=== PATIENT | female | born 1975 | race Caucasian/White ===

== ENCOUNTER 2020-06-12 10:27 | Emergency (ER) | payer SELFPAY ==
[2020-06-12] MEDS ORDERED: PANTOPRAZOLE SODIUM 40 MG VIAL IV ONE (11:49)
[2020-06-12] MEDS ORDERED: NORMAL SALINE 1000 ML 1,000 ML IV ONE (11:51)
[2020-06-12 12:00] LABS: ABSOLUTE LYMPHOCYTES (AUTO) 1.3 10^3/uL (0.5-4.7); ABSOLUTE MONOCYTES (AUTO) 0.6 10^3/uL (0.1-1.4); ABSOLUTE NEUT (AUTO) 4.1 10^3/uL (1.7-8.2); BASOPHILS % (AUTO) 0.7 % (0-2); EOSINOPHILS % (AUTO) 0.5 % (0-6); HEMATOCRIT 38.5 % (36.0-47.0); HEMOGLOBIN 13.1 g/dL (12.0-15.5); LYMPHOCYTES % (AUTO) 21.4 % (13-45); MEAN CORPUSCULAR HEMOGLOBIN 34.2 pg (27.0-33.4); MEAN CORPUSCULAR HGB CONC 34.1 g/dL (32.0-36.0); MEAN CORPUSCULAR VOLUME 101 fl (80-97); MONOCYTES % (AUTO) 9.4 % (3-13); PLATELET COUNT 238 10^3/uL (150-450); RED BLOOD COUNT 3.84 10^6/uL (3.72-5.28); RED CELL DISTRIBUTION WIDTH 13.6 % (11.5-14.0); TOTAL CELLS COUNTED % (AUTO) 100 %
[2020-06-12 12:03] LABS: ALBUMIN 3.1 g/dL (3.5-5.0); ALKALINE PHOSPHATASE 66 U/L (38-126); ASPARTATE AMINO TRANSFERASE 44 U/L (14-36); BILIRUBIN,DIRECT 0.4 mg/dL (0.0-0.4); BILIRUBIN,TOTAL 0.6 mg/dL (0.2-1.3); BLOOD UREA NITROGEN 17 mg/dL (7-20); CALCIUM 8.7 mg/dL (8.4-10.2); CARBON DIOXIDE 25 mmol/L (22-30); CHLORIDE 108 mmol/L (98-107); GLUCOSE 77 mg/dL (75-110); POTASSIUM 4.4 mmol/L (3.6-5.0); TOTAL PROTEIN 5.8 g/dL (6.3-8.2)
[2020-06-12 12:04] LABS: ANION GAP 3 (5-19)
[2020-06-12 12:19] LABS: ACETAMINOPHEN < 10 ug/mL (10-30); ALCOHOL < 10 mg/dL (NONE DETECTED)
--- NOTE | 2020-06-12 12:22 | RADIOLOGY REPORT (SQ) ---
EXAM DESCRIPTION: CHEST SINGLE VIEW IMAGES COMPLETED DATE/TIME: 06/12/2020 12:05 pm REASON FOR STUDY: abd pain/history of gastric ulcer COMPARISON: None. EXAM PARAMETERS: NUMBER OF VIEWS: One view. TECHNIQUE: Single frontal radiographic view of the chest acquired. RADIATION DOSE: NA LIMITATIONS: None. FINDINGS: LUNGS AND PLEURA: No opacities, masses or pneumothorax. No pleural effusion. MEDIASTINUM AND HILAR STRUCTURES: No masses. Contour normal. HEART AND VASCULAR STRUCTURES: Heart normal in size. Normal vasculature. BONES: No acute findings. HARDWARE: None in the chest. OTHER: No other significant finding. IMPRESSION: NO ACUTE RADIOGRAPHIC FINDING IN THE CHEST. TECHNICAL DOCUMENTATION: JOB ID: [id number] 2010 [employer]- All Rights Reserved Reading location - IP/workstation name: [email or web address]
[2020-06-12] MEDS ORDERED: MORPHINE SULFATE 10 MG/ML INJ IV ONE (13:41)
[2020-06-12] MEDS ORDERED: ONDANSETRON HCL INJ/PF 4 MG/2 ML SDV IV ONE (13:42)
--- NOTE | 2020-06-12 14:03 | ER Document Report ---
Entered by MIHIR MARROQUIN SCRIBE 06/12/20 1142 Acting as scribe for:GIRMA BHANDARI MD ED GI/ - General Chief Complaint: Abdominal Pain Stated Complaint: ABDOMINAL PAIN Time Seen by Provider: 06/12/20 10:39 Mode of Arrival: Medic Information source: Patient, Parent Notes: This 45 year old female patient brought in by EMS from her mother's house presents to the ED for evaluation stating "I feel like I'm suffocating when I eat again." Patient states that this happens when she is "obstructed." She states that she noticed dark and bright red blood in her stool yesterday and this morning. She reports a complicated history of x5 perforated ulcers with x4 revisions and that she has "less than 10% of my stomach left." She mentions that she is visiting from [place] and that the last time she was in the hospital there in 12/2019, she was told she had another ulcer "the size of my stomach." Denies any nausea or vomiting. No blood thinners. Patient received 20 mg Pepcid and 4 mg Zofran via EMS. After leaving the room, the patient's mother who was at bedside pulled me aside and disclosed that the patient has a history of drug and ETOH abuse and that she believes she is drinking again and may be in withdrawal. Mother reports that she spoke with the patient's roommate back in [place] and was told that the patient has been taking x20-50 Tylenol PM tablets every day. She further reports that the patient arrived in [place] on 06/07 as a "surprise" and told her that she only had a year left due to her complicated GI history. Mother expresses concerns about the patient possibly withholding information regarding her health. - Related Data Allergies/Adverse Reactions: No Known Allergies Allergy (Verified 06/12/20 10:31) Past Medical History - General Information source: Patient, [facility] Records - Social History Smoking Status: Unknown if Ever Smoked Smoking Education Provided: No Family History: Reviewed & Not Pertinent Patient has homicidal ideation: No GI Medical History: Reports: Hx Ulcer Past Surgical History: Reports: Hx Abdominal Surgery - x4 revision, Hx Gastric Bypass Surgery - Immunizations Hx Diphtheria, Pertussis, Tetanus Vaccination: No Review of Systems - Review of Systems Constitutional: No symptoms reported EENT: See HPI Cardiovascular: No symptoms reported Respiratory: No symptoms reported Gastrointestinal: See HPI Genitourinary: No symptoms reported Female Genitourinary: No symptoms reported Musculoskeletal: No symptoms reported Skin: No symptoms reported Hematologic/Lymphatic: No symptoms reported Neurological/Psychological: No symptoms reported -: Yes All other systems reviewed and negative Physical Exam - Vital signs Vitals: Pulse Ox 99 06/12/20 10:51 - General General appearance: Alert, Anxious In distress: None - HEENT Head: Normocephalic, Atraumatic Eyes: Normal Pupils: PERRL - Respiratory Respiratory status: No respiratory distress Chest status: Nontender Breath sounds: Normal Chest palpation: Normal - Cardiovascular Rhythm: Regular Heart sounds: Normal auscultation, S1 appreciated, S2 appreciated Murmur: No Friction rub: No Gallop: None auscultated - Abdominal Inspection: Normal Distension: No distension Bowel sounds: Normal - Active bowel sounds Tenderness: Nontender - Abdomen soft Organomegaly: No organomegaly - Back Back: Normal, Nontender - Extremities General upper extremity: Normal inspection General lower extremity: Normal inspection. No: Edema - Neurological Neuro grossly intact: Yes Orientation: AAOx4 [place] Coma Scale Eye Opening: Spontaneous [place] Coma Scale Verbal: Oriented [place] Coma Scale Motor: Obeys Commands [place] Coma Scale Total: 15 - Psychological Associated symptoms: Anxious, Other - Rapid speech - Skin Skin Temperature: Warm Skin Moisture: Dry Skin Color: Normal Course - Re-evaluation Re-evalutation: 06/12/20 17:04 Patient resting comfortably at this time. 06/12/20 17:06 Bedside [id number] Hemoccult of stool shows a brown-colored stool that is guaiac positive on Hemoccult. 06/12/20 17:06 Patient is not showing any signs of any active GI upper or lower GI bleed. Patient may have hemorrhoids therefore will start patient on Anusol AC. - Vital Signs Vital signs: Temp Pulse Resp BP Pulse Ox 98 F 19 144/94 H 98 06/12/20 10:53 06/12/20 14:46 06/12/20 14:46 06/12/20 14:46 06/12/20 17:05 Vital signs are stable. Patient's blood pressure systolic 144/94. - Laboratory Result Diagrams: 06/12/20 11:47 06/12/20 11:15 Laboratory results interpreted by me: 06/12/20 06/12/20 06/12/20 11:15 11:47 11:47 MCV 101 H MCH 34.2 H Sodium 135.7 L Chloride 108 H Anion Gap 3 L Creatinine 0.39 L Lactic Acid 0.6 L AST 44 H Total Protein 5.8 L Albumin 3.1 L Acetaminophen 06/12/20 11:47 MCV MCH Sodium Chloride Anion Gap Creatinine Lactic Acid AST Total Protein Albumin Acetaminophen < 10 L 06/12/20 11:47 06/12/20 11:15 MCV 101 fl (80-97) H 06/12/20 11:47 MCH 34.2 pg (27.0-33.4) H 06/12/20 11:47 MCHC 34.1 g/dL (32.0-36.0) 06/12/20 11:47 RDW 13.6 % (11.5-14.0) 06/12/20 11:47 Seg Neutrophils % 68.0 % (42-78) 06/12/20 11:47 Chloride 108 mmol/L (98-107) H 06/12/20 11:15 Carbon Dioxide 25 mmol/L (22-30) 06/12/20 11:15 Anion Gap 3 (5-19) L 06/12/20 11:15 Est GFR ( Amer) > 60 (>60) 06/12/20 11:15 Glucose 77 mg/dL (75-110) 06/12/20 11:15 Lactic Acid 0.6 mmol/L (0.7-2.1) L 06/12/20 11:47 Calcium 8.7 mg/dL (8.4-10.2) 06/12/20 11:15 Total Bilirubin 0.6 mg/dL (0.2-1.3) 06/12/20 11:15 AST 44 U/L (14-36) H 06/12/20 11:15 Alkaline Phosphatase 66 U/L (38-126) 06/12/20 11:15 Total Protein 5.8 g/dL (6.3-8.2) L 06/12/20 11:15 Albumin 3.1 g/dL (3.5-5.0) L 06/12/20 11:15 Lipase 289.9 U/L (23-300) 06/12/20 11:15 Urine Color YELLOW 06/12/20 14:03 Urine Appearance CLEAR 06/12/20 14:03 Urine pH 6.0 (5.0-9.0) 06/12/20 14:03 Ur Specific [place] 1.013 06/12/20 14:03 Urine Protein NEGATIVE mg/dL (NEGATIVE) 06/12/20 14:03 Urine Glucose (UA) NEGATIVE mg/dL (NEGATIVE) 06/12/20 14:03 Urine Ketones NEGATIVE mg/dL (NEGATIVE) 06/12/20 14:03 Urine Blood NEGATIVE (NEGATIVE) 06/12/20 14:03 Urine Nitrite NEGATIVE (NEGATIVE) 06/12/20 14:03 Ur Leukocyte Esterase NEGATIVE (NEGATIVE) 06/12/20 14:03 Urine WBC (Auto) 1 /HPF 06/12/20 14:03 Urine RBC (Auto) 0 /HPF 06/12/20 14:03 Blood Type O POSITIVE 06/12/20 11:47 Antibody Screen NEGATIVE 06/12/20 11:47 06/12/20 12:32 Troponin I < 0.012 Laboratory exam does not disclose any acute process. - Diagnostic Test Radiology reviewed: Image reviewed, Reports reviewed Radiology results interpreted by me: 06/12/20 16:19 Abdomen/Pelvis CT 06/12/20 00:00 IMPRESSION: Extensive postsurgical changes of the bowel with few mildly prominent loops of small bowel without evidence of high-grade obstruction. No evidence of acute intra-abdominal infectious/inflammatory process. Chest X-Ray 06/12/20 11:52 IMPRESSION: NO ACUTE RADIOGRAPHIC FINDING IN THE CHEST. Chest x-ray shows no acute process no free air underneath the diaphragm to suggest any abdominal viscus perforation. Abdominal pelvis CT with oral contrast only shows extensive postsurgical changes no evidence of any obstruction no evidence of any acute intra-abdominal infectious or inflammatory process. - EKG Interpretation by Me Additional EKG results interpreted by me: 06/12/20 16:18 12-lead EKG shows normal sinus rhythm rate of [address]-T wave changes to suggest a STEMI LA interval QRS interval and QT interval within normal interval ranges. Normal axis normal EKG. Discharge - Discharge Clinical Impression: Abdominal pain, Encounter for Hemoccult screening Condition: Stable Disposition: HOME, SELF-CARE Instructions: Abdominal Pain ([facility]) Additional Instructions: Rectal Bleeding, Unclear Cause No definite cause has been found for the rectal bleeding you have experienced. Among the possible causes are internal or external hemorrhoids (internal hemorrhoids can't be felt on the outside), an anal fissure (a crack at the anal ring), infections or inflammatory diseases of the colon, tumors or sarmad yps, or diverticula (diverticula are outpouchings from the colon wall). To establish a cause for your bleeding (or at least make certain there is no serious problem such as a tumor), further evaluation will be necessary. This may include special X-rays, or passage of a scope up into the colon. Be sure to keep your follow-up appointment. Should you develop brisk bleeding, abdominal pain, fever, lightheadedness, or fever, call the doctor or return at once. Prescriptions: Hydrocortisone Acetate [Anusol Hc 25 mg Supp.rect] 1 supp.rect LA BID #14 supp.rect Referrals: LEVI VALERIO MD [ACTIVE STAFF] - Follow up as needed I personally performed the services described in the documentation, reviewed and edited the documentation which was dictated to the scribe in my presence, and it accurately records my words and actions.
[2020-06-12 14:25] LABS: APPEARANCE,URINE CLEAR; BILIRUBIN,URINE NEGATIVE (NEGATIVE); COLOR,URINE YELLOW; GLUCOSE, URINE NEGATIVE (NEGATIVE); KETONES,URINE NEGATIVE (NEGATIVE); LEUKOCYTE ESTERASE,URINE NEGATIVE (NEGATIVE); NITRITE,URINE NEGATIVE (NEGATIVE); PROTEIN,URINE NEGATIVE (NEGATIVE); URINE SPECIFIC GRAVITY 1.013; UROBILINOGEN,URINE NEGATIVE mg/dL (<2.0)
--- NOTE | 2020-06-12 15:17 | RADIOLOGY REPORT (SQ) ---
EXAM DESCRIPTION: CT ABD/PELVIS ORAL ONLY IMAGES COMPLETED DATE/TIME: 06/12/2020 2:58 pm REASON FOR STUDY: abd pain/rectal bleed/ Gastric Bypass/ revisions COMPARISON: 04/18/2014 TECHNIQUE: CT scan of the abdomen and pelvis performed with oral contrast and no intravenous contras t. Images reviewed with lung, soft tissue, and bone windows. Reconstructed coronal and sagittal MPR i mages reviewed. All images stored on PACS. All CT scanners at this facility use dose modulation, iterative reconstruction, and/or weight based d osing when appropriate to reduce radiation dose to as low as reasonably achievable (ALARA). [facility]: Dose Right [facility]: CareDose [facility]: Dose Right [facility]: Teradose 4D [facility]: [employer] RADIATION DOSE: CT Rad equipment meets quality standard of care and radiation dose reduction techniq ues were employed. CTDIvol: 5.9 mGy. DLP: 330 mGy-cm.mGy. LIMITATIONS: None. FINDINGS: LOWER CHEST: No significant findings. No nodules or infiltrates. NON-CONTRASTED LIVER, SPLEEN, ADRENALS: Evaluation limited by lack of IV contrast. No identified sign ificant masses. PANCREAS: No masses. No peripancreatic inflammatory changes. GALLBLADDER: Surgically absent. RIGHT KIDNEY AND URETER: No solid masses. No significant calcification. No hydronephrosis or hydroure ter. LEFT KIDNEY AND URETER: No solid masses. No significant calcification. No hydronephrosis or hydrouret er. AORTA AND RETROPERITONEUM: No aneurysm. No retroperitoneal masses or adenopathy. BOWEL AND PERITONEAL CAVITY: Status post bariatric surgery with multiple anastomoses seen throughout the abdomen. No enteric contrast extravasation. Few mildly prominent loops of small bowel without e vidence of mechanical obstruction. . APPENDIX: Not visualized. PELVIS, BLADDER, AND ABDOMINAL WALL: No abnormal pelvic masses. Postsurgical changes without abdomin al wall hernias. Bladder unremarkable. BONES: No significant findings. OTHER: No other significant finding. IMPRESSION: Extensive postsurgical changes of the bowel with few mildly prominent loops of small bow el without evidence of high-grade obstruction. No evidence of acute intra-abdominal infectious/infla mmatory process. TECHNICAL DOCUMENTATION: JOB ID: [id number] Quality ID # [id number]: Final reports with documentation of one or more dose reduction techniques (e.g., Au tomated exposure control, adjustment of the mA and/or kV according to patient size, use of iterative reconstruction technique) 2010 [employer]- All Rights Reserved Reading location - IP/workstation name: [email or web address]
[2020-06-12] MEDS ORDERED: LIDOCAINE 2% VISCOUS SOLN 15 ML UDCUP PO ONE (16:25)
[2020-06-12] MEDS ORDERED: MAG HYDROX/AL HYDROX/SIMETH SUSP 30 ML UDCUP PO ONE (16:25)
[2020-06-12] MEDS ORDERED: METOCLOPRAMIDE HCL ORAL SOLN 10 MG/10 ML UDCUP PO ONE (16:25)
--- NOTE | 2020-06-12 16:30 | EKG REPORT ---
SEVERITY:- NORMAL ECG - SINUS RHYTHM : Confirmed by: Gabo Cam 12-Jun-2020 16:29:43
[2020-06-12 17:11] VITALS: BP 136/84
[2020-06-12 17:15] LABS: URINE AMPHETAMINES SCREEN NEGATIVE; URINE BARBITURATES SCREEN NEGATIVE; URINE BENZODIAZEPINES SCREEN NEGATIVE; URINE COCAINE SCREEN NEGATIVE; URINE MARIJUANA (THC) SCREEN NEGATIVE; URINE METHADONE SCREEN NEGATIVE; URINE PHENCYCLIDINE SCREEN NEGATIVE
== END 2020-06-12 17:33 | disposition home or self-care (01) ==
LOC: ER 10:27
DX: R10.9 Unspecified abdominal pain (principal); K92.1 Melena; Z98.84 Bariatric surgery status
CPT/HCPCS: 93005; 99285; 96361; 96374; 96375; 86900; 86901; 36415; 86850; 80307 ×3; 83605; 83690; 85025; 85730; 82270; 80053; 81001; 84484; 71045; 74176; 93010; J3490; J2270; C9113; J2405; J7030

== ENCOUNTER 2020-06-25 18:19 | Emergency (ER) | payer SELFPAY ==
[2020-06-25 20:25] LABS: ABSOLUTE EOSINOPHILS # (AUTO) 0.1 10^3/uL (0.0-0.6); ABSOLUTE LYMPHOCYTES (AUTO) 1.2 10^3/uL (0.5-4.7); ABSOLUTE MONOCYTES (AUTO) 0.4 10^3/uL (0.1-1.4); ABSOLUTE NEUT (AUTO) 3.2 10^3/uL (1.7-8.2); BASOPHILS % (AUTO) 0.6 % (0-2); EOSINOPHILS % (AUTO) 1.6 % (0-6); HEMATOCRIT 34.6 % (36.0-47.0); HEMOGLOBIN 12.2 g/dL (12.0-15.5); LYMPHOCYTES % (AUTO) 24.7 % (13-45); MEAN CORPUSCULAR HEMOGLOBIN 34.7 pg (27.0-33.4); MEAN CORPUSCULAR HGB CONC 35.3 g/dL (32.0-36.0); MEAN CORPUSCULAR VOLUME 98 fl (80-97); MONOCYTES % (AUTO) 8.7 % (3-13); PLATELET COUNT 202 10^3/uL (150-450); RED BLOOD COUNT 3.53 10^6/uL (3.72-5.28); SEGMENTED NEUTROPHILS % (AUTO) 64.4 % (42-78); TOTAL CELLS COUNTED % (AUTO) 100 %
[2020-06-25] MEDS ORDERED: ONDANSETRON HCL INJ/PF 4 MG/2 ML SDV IV ONE (20:31)
[2020-06-25] MEDS ORDERED: NORMAL SALINE 1000 ML 1,000 ML IV ONE (20:31)
[2020-06-25] MEDS ORDERED: FENTANYL CITRATE INJ/PF 100 MCG/2 ML AMPUL IV ONE (20:31)
--- NOTE | 2020-06-25 20:37 | ER Document Report ---
ED GI/ - General Chief Complaint: Bloody Stools Stated Complaint: ABDOMINAL PAIN Time Seen by Provider: 06/25/20 20:13 Notes: Patient is a 45-year-old female who comes emergency department for chief complaint of 4 days of abdominal pain, pain is worse in the mid to upper abdomen. She comes by EMS from home. EMS states concerns from family that patient she states she is also having frequent stools, intermittently she states these have appeared darker or bloody her but she denies black stools and she just had a bowel movement that was nonbloody. She denies vomiting but she states she is not able to vomit, she reports nausea. She denies fever/chills. Patient has an extensive abdominal history including gastric bypass with revision, reported bowel obstruction, hysterectomy, cholecystectomy. She also reports history of perforated peptic ulcers and GI bleeds. She states she is trying to fix her insurance to follow-up with gastroenterology in [place] but is not currently. Drinks frequent alcohol and also has recently abused methamphetamine, patient denies any other or recent recreational drugs, limited asked about alcohol she states she has not "had any for a while", however she does clarify that she most recently drank yesterday. She denies any daily medications. She denies alcohol dependence or withdrawals. - Related Data Allergies/Adverse Reactions: No Known Allergies Allergy (Verified 06/12/20 10:31) Past Medical History - General Information source: Patient - Social History Smoking Status: Never Smoker Chew tobacco use (# tins/day): No Frequency of alcohol use: Heavy Drug Abuse: Methamphetamine Lives with: Family Family History: Reviewed & Not Pertinent Neurological Medical History: Reports: Hx Migraine GI Medical History: Reports: Hx Gastritis, Hx Ulcer Past Surgical History: Reports: Hx Section, Hx Cholecystectomy, Hx Gastric Bypass Surgery - With revision, Hx Hysterectomy - Immunizations Hx Diphtheria, Pertussis, Tetanus Vaccination: No Review of Systems - Review of Systems Constitutional: No symptoms reported EENT: No symptoms reported Cardiovascular: No symptoms reported Respiratory: No symptoms reported Gastrointestinal: See HPI Genitourinary: No symptoms reported Female Genitourinary: No symptoms reported Musculoskeletal: No symptoms reported Skin: No symptoms reported Hematologic/Lymphatic: No symptoms reported Neurological/Psychological: No symptoms reported Physical Exam - Vital signs Vitals: Resp Pulse Ox 25 H 95 06/25/20 18:28 06/25/20 18:28 - Notes Notes: GENERAL: Patient shifting around as if somewhat uncomfortable but she does not appear to be in severe distress, she is alert and cooperative HEAD: Normocephalic, atraumatic. EYES: Pupils equal, round, and reactive to light. Extraocular movements intact. ENT: Oral mucosa moist, tongue midline. Oropharynx unremarkable. Airway patent. NECK: Full range of motion. Supple. Trachea midline. No lymphadenopathy. LUNGS: Clear to auscultation bilaterally, no wheezes, rales, or rhonchi. No respiratory distress. Non-tender chest wall. HEART: Regular rate and rhythm. No murmur ABDOMEN: Generalized tenderness of the abdomen, no overt distention or rigidity, no guarding. Nonspecific exam. Deep scars vertically in the mid upper abdomen EXTREMITIES: Moves all 4 extremities spontaneously. No edema, normal radial and dorsalis pedis pulses bilaterally. No cyanosis. BACK: no cervical, thoracic, lumbar midline tenderness. No saddle anesthesia, normal distal neurovascular exam. Moves all extremities in full range of motion. NEUROLOGICAL: Alert and oriented x3. Normal speech. Cranial nerves II through XII grossly intact. Strength 5/5 in all extremities. PSYCH: Normal affect, normal mood. SKIN: Warm, dry, normal turgor. No rashes or lesions noted. Course - Re-evaluation Re-evalutation: Patient complains of abdominal pain and was shifting around initially as if she was uncomfortable. However when I left the room and suddenly came back she had no signs of distress. She has no overt distention of the abdomen and she has generalized tenderness. She does have significant surgical history and significant surgical scars. Acute abdominal series questionable and there is not an overt obstruction but it also cannot rule this out. CBC unremarkable, chemistry shows elevated LFTs, there is alcohol present in patient's blood but this is low, alcohol lipase unremarkable, bilirubin unremarkable, I suspect this is secondary to alcohol abuse. AST greater than ALT. Urinalysis unremarkable. CAT scan will be performed to rule out acute etiology based on patient's uncertain exam and concerning past along with her current reported symptoms. CT of the abdomen and pelvis with oral and IV contrast does not show any overt or significant change from prior, probable ileus. Patient actually tolerated the contrast quite well and on reevaluation she continues to be well-appearing. I discussed results with patient at length. She had a bowel movement while she was here. She is sitting up in bed. She tolerated p.o. without difficulty. Initially we discussed the ileus, patient will be provided with MiraLAX, discussed alcohol abuse, she will be provided with Carafate and famotidine, I have offered detox placement but patient declined. She denies SI or HI as well. She states that she actually drinks when she wants to and not because she has to, she denies addiction. Patient already is scheduled to follow-up with a billing clinician she reports, she states she does not need referral. I discussed return precautions at length, patient states she is ready to go home, patient states appreciation and agreement. Stable, smiling, well-appearing at time of discharge. - Vital Signs Vital signs: Temp Pulse Resp BP Pulse Ox 98.0 F 14 102/61 94 06/26/20 00:02 06/26/20 01:00 EST 06/26/20 01:01 EST 06/26/20 01:01 EST - Laboratory Result Diagrams: 06/25/20 20:15 06/25/20 20:15 Laboratory results interpreted by me: 06/25/20 06/25/20 20:15 20:15 RBC 3.53 L Hct 34.6 L MCV 98 H MCH 34.7 H Carbon Dioxide 20 L Creatinine 0.47 L AST 249 H ALT 230 H Alkaline Phosphatase 192 H Total Protein 6.2 L Albumin 3.4 L Discharge - Discharge Clinical Impression: Nausea Abdominal pain Qualifiers: Abdominal location: generalized Qualified Code(s): R10.84 - Generalized abdomi nal pain Condition: Stable Disposition: HOME, SELF-CARE Additional Instructions: Your imaging shows a likely ileus as we discussed, I do recommend the stool softener as prescribed, drink plenty of fluids, start with bland diet, avoid alcohol. Take the Carafate and Pepcid as prescribed. Take Phenergan if needed for nausea. Please call and follow-up with your planned billing clinician within the next several days. Return if you worsen including severe worsening pain, fever, swelling of the abdomen, black/bloody stools, or any other concerning or worsening symptoms. Prescriptions: Sucralfate [Carafate 1 gm Tablet] 1 gm PO QID #20 tablet Polyethylene Glycol 3350 [Miralax Powder 17 gm/Packet] 1 packet PO DAILY PRN #1 pkg PRN Reason: Famotidine [Pepcid 20 mg Tablet] 20 mg PO BID #20 tablet Promethazine HCl [Phenergan 25 mg Tablet] 25 mg PO Q6H PRN #20 tablet PRN Reason:
[2020-06-25 20:42] LABS: ALBUMIN 3.4 g/dL (3.5-5.0); ALKALINE PHOSPHATASE 192 U/L (38-126); ANION GAP 10 (5-19); ASPARTATE AMINO TRANSFERASE 249 U/L (14-36); BILIRUBIN,TOTAL 0.4 mg/dL (0.2-1.3); BLOOD UREA NITROGEN 14 mg/dL (7-20); CALCIUM 8.6 mg/dL (8.4-10.2); CARBON DIOXIDE 20 mmol/L (22-30); CHLORIDE 107 mmol/L (98-107); GLUCOSE 85 mg/dL (75-110); POTASSIUM 3.6 mmol/L (3.6-5.0); TOTAL PROTEIN 6.2 g/dL (6.3-8.2)
[2020-06-25 21:35] LABS: APPEARANCE,URINE CLEAR; BILIRUBIN,URINE NEGATIVE (NEGATIVE); COLOR,URINE YELLOW; GLUCOSE, URINE NEGATIVE (NEGATIVE); KETONES,URINE NEGATIVE (NEGATIVE); LEUKOCYTE ESTERASE,URINE NEGATIVE (NEGATIVE); NITRITE,URINE NEGATIVE (NEGATIVE); PROTEIN,URINE NEGATIVE (NEGATIVE); URINE SPECIFIC GRAVITY 1.018; UROBILINOGEN,URINE NEGATIVE mg/dL (<2.0)
[2020-06-25 21:50] LABS: URINE AMPHETAMINES SCREEN NEGATIVE; URINE BARBITURATES SCREEN NEGATIVE; URINE BENZODIAZEPINES SCREEN NEGATIVE; URINE COCAINE SCREEN NEGATIVE; URINE MARIJUANA (THC) SCREEN NEGATIVE; URINE METHADONE SCREEN NEGATIVE; URINE PHENCYCLIDINE SCREEN NEGATIVE
--- NOTE | 2020-06-25 21:55 | RADIOLOGY REPORT (SQ) ---
EXAM DESCRIPTION: XR ABDOMEN SUPINE AND ERECT WITH CHEST (ABD ACUTE SERIES) COMPLETED DATE/TME: 06/25/2020 20:30 CLINICAL HISTORY: 45 years, Female, abd pain/swelling, hx obs and perforation COMPARISON: 22,020 CT abdomen and pelvis NUMBER OF VIEWS: 3 TECHNIQUE: Flat and upright views of the abdomen and single frontal view of the chest were obtained LIMITATIONS: None. FINDINGS: Distended and mildly dilated loops of small and large bowel are identified, small bowel measuring up to 4 cm and large bowel 6.5 cm. This is likely without significant interval change from the prior CT. There is no evidence of pneumoperitoneum. There is no definite abnormal mass effect. No definite opaque urinary tract calculus is seen. The heart size is normal. Lungs are clear. There is no definite acute or suspicious bony abnormality. IMPRESSION: Persistent distended mildly dilated small and large bowel, likely without significant change from the June 12, 2020 CT allowing for differences in imaging modalities. This could be on the basis of an ileus or partial distal bowel obstruction. copyright 2010 [employer]- All Rights Reserved
[2020-06-25] MEDS ORDERED: LORAZEPAM INJ 2 MG/1 ML VIAL IV ONE (22:47)
[2020-06-26] MEDS ORDERED: ONDANSETRON ODT 4 MG TAB (6 TAB/ER DISP) PO PRN (01:05)
[2020-06-26] MEDS ORDERED: LORAZEPAM 1 MG TABLET PO ONE (01:10)
--- NOTE | 2020-06-26 01:46 | RADIOLOGY REPORT (SQ) ---
CT ABDOMEN AND PELVIS WITH INTRAVENOUS CONTRAST: 06/26/2020 12:38 AM CDT HISTORY: 45-year old with abdominal pain. COMPARISON: CT of abdomen and pelvis from 04/18/2014, CT of abdomen and pelvis from 06/12/2020 TECHNIQUE: Axial contiguous images were obtained from the lung bases to the proximal femurs with intravenous intravenous contrast administered. Oral contrast was also given to the patient. Sagittal and coronal reconstructions were also obtained and reviewed. This exam was performed according to our departmental dose-optimization program, which includes automated exposure control, adjustment of the mA and/or KV according to the patient's size and/or use of iterative reconstruction technique. FINDINGS: No focal consolidative airspace opacities are seen. No discrete pleural effusions are seen. The visualized hepatic parenchyma is unremarkable. No focal enhancing lesion is seen. The gallbladder is surgically absent. There is mild prominence of the intra and extrahepatic ducts, likely due to postcholecystectomy changes. The spleen is normal in size. The pancreas is unremarkable. The bilateral adrenal glands appear unremarkable. Both kidneys demonstrate no evidence of hydronephrosis. The urinary bladder is mildly distended, and appears grossly unremarkable. The stomach is not well distended. There are post surgical changes noted at the stomach. There is similar mild prominence of the small bowel and colon without evidence for gross transition point. This likely reflects evidence of an ileus, less likely an obstructive process. No pericolonic inflammatory stranding is seen. There is evidence of prior small bowel anastomoses and postsurgical change There is no evidence of pneumoperitoneum or free fluid. The aorta and IVC appear normal in size. No significantly enlarged lymph nodes are seen in the abdomen or pelvis. Review of the bone show no evidence of any suspicious lytic or blastic lesions. IMPRESSION: There is similar mild prominence of the small bowel and colon without evidence for gross transition point. This likely reflects evidence of an ileus, less likely an obstructive process.
[2020-06-26 01:52] VITALS: BP 114/81
== END 2020-06-26 01:54 | disposition home or self-care (01) ==
LOC: ER 18:19
DX: R10.84 Generalized abdominal pain (principal); R10.817 Generalized abdominal tenderness; R11.0 Nausea; F15.10 Other stimulant abuse, uncomplicated; R79.89 Other specified abnormal findings of blood chemistry; Z87.11 Personal history of peptic ulcer disease; Z98.84 Bariatric surgery status; Z87.19 Personal history of other diseases of the digestive system; Z90.49 Acquired absence of other specified parts of digestive tract; Z90.710 Acquired absence of both cervix and uterus
CPT/HCPCS: 99285; 96361; 96374; 96375; 36415; 80307 ×2; 83690; 85025; 80053; 81001; 74022; 74177; J3010; J2060; J2405; J7030

== ENCOUNTER 2020-06-30 12:07 | Observation (INO) | payer SELFPAY ==
--- NOTE | 2020-06-30 12:49 | ER Document Report ---
ED Medical Screen (RME) - General Chief Complaint: Nausea/Vomiting/Diarrhea Stated Complaint: NAUSEA/VOMITING/DIARRHEA/HEADACHE Time Seen by Provider: 06/30/20 12:43 Mode of Arrival: Wheelchair Information source: Patient Notes: 45-year-old female presents to ED for complaint of nausea vomiting or diarrhea for the last 11 days. She states she has been here multiple times and they sent her home with medicine they have done CAT scans blood work urine and discharge her home with medicines. She states she cannot get into GI and she is going to the bathroom about 20 times a day. She states she is very weak from going to the bathroom so many times. She states the stools are green runny and some of them have blood in them. She had a gastric bypass when she was 28 she is also had a history of bleeding ulcers in the past for revisions of her bypass. She states she has a stomach ulcer now also. She states she has had numerous blood transfusions in the past has had a pulmonary emboli in the past. We will order blood urine and stool and IV fluids and Zofran. I have greeted and performed a rapid initial assessment of this patient. A comprehensive ED assessment and evaluation of the patient, analysis of test results and completion of medical decision making process will be conducted by an additional ED providers. - Related Data Allergies/Adverse Reactions: No Known Allergies Allergy (Verified 06/12/20 10:31) Past Medical History Neurological Medical History: Reports: Hx Migraine GI Medical History: Reports: Hx Gastritis, Hx Ulcer Past Surgical History: Reports: Hx Abdominal Surgery - x4 revision, Hx Section, Hx Cholecystectomy, Hx Gastric Bypass Surgery - With revision, Hx Hysterectomy - Immunizations Hx Diphtheria, Pertussis, Tetanus Vaccination: No Physical Exam - Vital signs Vitals: Temp Pulse Resp BP Pulse Ox 98.8 F 110 H 20 110/84 97 06/30/20 12:38 06/30/20 12:38 06/30/20 12:38 06/30/20 12:38 06/30/20 12:38 Course - Vital Signs Vital signs: Temp Pulse Resp BP Pulse Ox 98.8 F 110 H 20 110/84 97 06/30/20 12:38 06/30/20 12:38 06/30/20 12:38 06/30/20 12:38 06/30/20 12:38
[2020-06-30] MEDS ORDERED: NORMAL SALINE 1000 ML 1,000 ML IV ONE (13:56)
--- NOTE | 2020-06-30 14:00 | ER Document Report ---
ED General - General Mode of Arrival: Wheelchair <JAMAL TOMAS - Last Filed: 06/30/20 20:02> <PÉREZ RIVERA - Last Filed: 07/01/20 11:09> - General Chief Complaint: Diarrhea Stated Complaint: NAUSEA/VOMITING/DIARRHEA/HEADACHE Time Seen by Provider: 06/30/20 12:43 - HPI Notes: 45-year-old female presents to the emergency room today with complaints of having 12 days of having diarrhea, stooling several times a day. Patient states she has been taking Pepcid, Carafate, Phenergan as directed from when she was seen in the emergency room on June 26. Denies any melena. pt was given miralax, she states she only took 3 doses of the MiraLAX. Patient states that she has had 12 straight days of stooling at least 20 times a day. Denies any antibiotics, travel outside of the country. CT abdomen pelvis with IV and oral contrast showed that she was likely developing an ileus, this is why she was prescribed stool softeners advised to drink plenty fluids, follow bland diet, avoid any alcohol. Patient states she has been following this. Patient denies any black tarry stool. Patient denies any vomiting but does report some nausea and. Patient's past medical history is extensive with the fact that she did have a gastric bypass done 17 years ago with a revision, history of bowel obstruction, hysterectomy, cholecystectomy. Patient also reports she has had a history of perforated peptic ulcers and GI bleeds. Patient recently moved from [place] on 05 June, back to [place] and she decided that she is going to stay here. Prior to moving to [place] she did have a title manager in [place] but she is not currently with a title manager. Patient states she does have a history of drinking alcohol, she recently used methamphetamines, denies any other recreational drugs. Patient denies any alcohol use today. Denies any alcohol dependence or withdrawals. Patient states she has not been able to get into a title manager because she does not have a ride to [place], discussed with patient that there are title manager within [facility] that she can visit to obtain further evaluation as to what is going on with her abdominal pain and stooling. (JAMAL TOMAS) - Related Data Allergies/Adverse Reactions: No Known Allergies Allergy (Verified 06/12/20 10:31) Past Medical History - General Information source: Patient - Social History Smoking Status: Never Smoker Chew tobacco use (# tins/day): No Drug Abuse: None Family History: Reviewed & Not Pertinent Patient has homicidal ideation: No Neurological Medical History: Reports: Hx Migraine GI Medical History: Reports: Hx Gastritis, Hx Ulcer Past Surgical History: Reports: Hx Abdominal Surgery - x4 revision, Hx Section, Hx Cholecystectomy, Hx Gastric Bypass Surgery - With revision, Hx Hysterectomy - Immunizations Hx Diphtheria, Pertussis, Tetanus Vaccination: No <JAMAL TOMAS - Last Filed: 06/30/20 20:02> Review of Systems - Review of Systems Constitutional: No symptoms reported EENT: No symptoms reported Cardiovascular: No symptoms reported Respiratory: No symptoms reported Gastrointestinal: See HPI Genitourinary: No symptoms reported Female Genitourinary: No symptoms reported Musculoskeletal: No symptoms reported Skin: No symptoms reported Hematologic/Lymphatic: No symptoms reported Neurological/Psychological: No symptoms reported <JAMAL TOMAS - Last Filed: 06/30/20 20:02> Physical Exam <JAMAL TOMAS - Last Filed: 06/30/20 20:02> - Vital signs Vitals: Temp Pulse Resp BP Pulse Ox 98.8 F 110 H 20 110/84 97 06/30/20 12:38 06/30/20 12:38 06/30/20 12:38 06/30/20 12:38 06/30/20 12:38 - Notes Notes: MEDICATIONS: I agree with the patient medications as charted by the RN. ALLERGIES: I agree with the allergies as charted by the RN. PAST MEDICAL HISTORY/PAST SURGICAL HISTORY: Reviewed and agree as charted by RN. SOCIAL HISTORY: Reviewed and agree as charted by RN. FAMILY HISTORY: No significant familial comorbid conditions directly related to patient complaint EXAM: Reviewed vital signs as charted by RN. PHYSICAL EXAMINATION: reviewed vital signs by RN GENERAL: Well-appearing, well-nourished and in no acute distress. HEAD: Atraumatic, normocephalic. EYES: Pupils equal round and reactive to light, extraocular movements intact, conjunctiva are normal. ENT: Nares patent, oropharynx clear without exudates. Moist mucous membranes. NECK: Normal range of motion, supple without lymphadenopathy LUNGS: Breath sounds clear to auscultation bilaterally and equal. No wheezes rales or rhonchi. HEART: Regular rate and rhythm without murmurs ABDOMEN: Soft, generalized abdominal tenderness, nondistended abdomen. No guarding, no rebound. No masses appreciated. Patient does have a vertical keloid from her umbilicus to epigastric area. No CVA tenderness appreciated bilaterally. Female : deferred Musculoskeletal: Normal range of motion, no pitting or edema. No cyanosis. NEUROLOGICAL: Cranial nerves grossly intact. Normal speech, normal gait. Normal sensory, motor exams PSYCH: Normal mood, normal affect. SKIN: Warm, Dry, normal turgor, no rashes or lesions noted. (JAMAL TOMAS) Course - Laboratory Result Diagrams: 06/30/20 14:20 06/30/20 14:20 <JAMAL TOMAS - Last Filed: 06/30/20 20:02> - Laboratory Result Diagrams: 06/30/20 14:20 07/01/20 08:14 <PÉREZ RIVERA - Last Filed: 07/01/20 11:09> - Re-evaluation Re-evalutation: 06/30/20 19:36 Afebrile vital stable and in no distress. Nurses notes reviewed lab called and patient does have a potassium of 2.6. I did consult with Dr. Vu simons, ER supervising physician at 1517, he recommended giving her (2) 20 mEq KCL riders and 40 mEq orally. Due to patient's IV infiltrated, unable to give her IV potassium chloride, she has received oral potassium chloride, awaiting for IV potassium. There has been multiple attempts to putting an IV, 3 separate times, the IV has infiltrated. Awaiting for a nurse to bring a ultrasound-guided IV. Due to multiple critical patients in the emergency room right now, we are waiting for nurse to put in an IV. CBC negative for leukocytosis or anemia. CMP does show her ALT 94 which is elevated from her AST. Patient's carbon dioxide is slightly low her alk phos is elevated at 332. coags are essentially normal. D-dimer is negative due to patient's heart rate being greater than 110. 1939-RN at bedside trying to attempt another IV. 1999- disposition given to Pérez Rivera NP 06/30/20 20:01 (JAMAL TOMAS) 07/01/20 02:31 No Abdomen/Pelvis CT 06/30/20 00:00 IMPRESSION: Progressive small bowel and colon dilatation. Fluid throughout the colon to the level of the rectum. No high-grade obstruction. Presumed paralytic process. Laboratory 06/30/20 06/30/20 06/30/20 13:44 14:20 14:20 WBC 7.0 RBC 4.38 Hgb 15.0 Hct 41.8 MCV 95 MCH 34.3 H MCHC 35.9 RDW 13.0 Plt Count 390 Lymph % (Auto) 14.6 [place] % (Auto) 12.7 Eos % (Auto) 2.2 Baso % (Auto) 0.4 Absolute Neuts (auto) 4.9 Absolute Lymphs (auto) 1.0 Absolute Monos (auto) 0.9 Absolute Eos (auto) 0.2 Absolute Basos (auto) 0.0 Seg Neutrophils % 70.1 PT 13.4 INR 1.00 APTT 36.8 H D-Dimer 0.28 Sodium Potassium Chloride Carbon Dioxide Anion Gap BUN Creatinine Est GFR ( Amer) Est GFR (MDRD) Non-Af Glucose Calcium Magnesium Total Bilirubin Direct Bilirubin Neonat Total Bilirubin Neonat Direct Bilirubin Neonat Indirect Bili AST ALT Alkaline Phosphatase Troponin I Total Protein Albumin Urine Color Urine Appearance Urine pH Ur Specific [place] Urine Protein Urine Glucose (UA) Urine Ketones Urine Blood Urine Nitrite Urine Bilirubin Urine Urobilinogen Ur Leukocyte Esterase Urine WBC (Auto) Urine RBC (Auto) U Hyaline Cast (Auto) Urine Bacteria (Auto) Squamous Epi Cells Auto Urine Mucus (Auto) Urine Ascorbic Acid Stool for White Cells Stl C. Difficile GDH Ag Stl C.difficile Tox A&B Urine Opiates Screen Urine Methadone Screen Ur Barbiturates Screen Ur Phencyclidine Scrn Ur Amphetamines Screen U Benzodiazepines Scrn Urine Cocaine Screen U Marijuana (THC) Screen Serum Alcohol COVID-19 Source See comment Blood Type Antibody Screen 06/30/20 06/30/20 06/30/20 14:20 14:20 14:20 WBC RBC Hgb Hct MCV MCH MCHC RDW Plt Count Lymph % (Auto) [place] % (Auto) Eos % (Auto) Baso % (Auto) Absolute Neuts (auto) Absolute Lymphs (auto) Absolute Monos (auto) Absolute Eos (auto) Absolute Basos (auto) Seg Neutrophils % PT INR APTT D-Dimer Sodium 133.6 L Potassium 2.6 L* Chloride 102 Carbon Dioxide 19 L Anion Gap 13 BUN 17 Creatinine 0.78 Est GFR ( Amer) > 60 Est GFR (MDRD) Non-Af > 60 Glucose 82 Calcium 9.6 Magnesium Total Bilirubin 0.5 Direct Bilirubin 0.0 Neonat Total Bilirubin Not Reportable Neonat Direct Bilirubin Not Reportable Neonat Indirect Bili Not Reportable AST 20 ALT 94 H Alkaline Phosphatase 332 H Troponin I < 0.012 Total Protein 7.5 Albumin 4.3 Urine Color Urine Appearance Urine pH Ur Specific [place] Urine Protein Urine Glucose (UA) Urine Ketones Urine Blood Urine Nitrite Urine Bilirubin Urine Urobilinogen Ur Leukocyte Esterase Urine WBC (Auto) Urine RBC (Auto) U Hyaline Cast (Auto) Urine Bacteria (Auto) Squamous Epi Cells Auto Urine Mucus (Auto) Urine Ascorbic Acid Stool for White Cells Stl C. Difficile GDH Ag Stl C.difficile Tox A&B Urine Opiates Screen Urine Methadone Screen Ur Barbiturates Screen Ur Phencyclidine Scrn Ur Amphetamines Screen U Benzodiazepines Scrn Urine Cocaine Screen U Marijuana (THC) Screen Serum Alcohol < 10 COVID-19 Source Blood Type O POSITIVE Antibody Screen NEGATIVE 06/30/20 06/30/20 06/30/20 14:20 17:15 17:15 WBC RBC Hgb Hct MCV MCH MCHC RDW Plt Count Lymph % (Auto) [place] % (Auto) Eos % (Auto) Baso % (Auto) Absolute Neuts (auto) Absolute Lymphs (auto) Absolute Monos (auto) Absolute Eos (auto) Absolute Basos (auto) Seg Neutrophils % PT INR APTT D-Dimer Sodium Potassium Chloride Carbon Dioxide Anion Gap BUN Creatinine Est GFR ( Amer) Est GFR (MDRD) Non-Af Glucose Calcium Magnesium 1.8 Total Bilirubin Direct Bilirubin Neonat Total Bilirubin Neonat Direct Bilirubin Neonat Indirect Bili AST ALT Alkaline Phosphatase Troponin I Total Protein Albumin Urine Color Urine Appearance Urine pH Ur Specific [place] Urine Protein Urine Glucose (UA) Urine Ketones Urine Blood Urine Nitrite Urine Bilirubin Urine Urobilinogen Ur Leukocyte Esterase Urine WBC (Auto) Urine RBC (Auto) U Hyaline Cast (Auto) Urine Bacteria (Auto) Squamous Epi Cells Auto Urine Mucus (Auto) Urine Ascorbic Acid Stool for White Cells NO WBCs SEEN Stl C. Difficile GDH Ag NEGATIVE Stl C.difficile Tox A&B NEGATIVE Urine Opiates Screen Urine Methadone Screen Ur Barbiturates Screen Ur Phencyclidine Scrn Ur Amphetamines Screen U Benzodiazepines Scrn Urine Cocaine Screen U Marijuana (THC) Screen Serum Alcohol COVID-19 Source Blood Type Antibody Screen 06/30/20 06/30/20 17:15 17:15 WBC RBC Hgb Hct MCV MCH MCHC RDW Plt Count Lymph % (Auto) [place] % (Auto) Eos % (Auto) Baso % (Auto) Absolute Neuts (auto) Absolute Lymphs (auto) Absolute Monos (auto) Absolute Eos (auto) Absolute Basos (auto) Seg Neutrophils % PT INR APTT D-Dimer Sodium Potassium Chloride Carbon Dioxide Anion Gap BUN Creatinine Est GFR ( Amer) Est GFR (MDRD) Non-Af Glucose Calcium Magnesium Total Bilirubin Direct Bilirubin Neonat Total Bilirubin Neonat Direct Bilirubin Neonat Indirect Bili AST ALT Alkaline Phosphatase Troponin I Total Protein Albumin Urine Color YELLOW Urine Appearance SLIGHTLY-CLOUDY Urine pH 6.0 Ur Specific [place] 1.012 Urine Protein 30 H Urine Glucose (UA) NEGATIVE Urine Ketones NEGATIVE Urine Blood NEGATIVE Urine Nitrite POSITIVE H Urine Bilirubin NEGATIVE Urine Urobilinogen NEGATIVE Ur Leukocyte Esterase NEGATIVE Urine WBC (Auto) 4 Urine RBC (Auto) 1 U Hyaline Cast (Auto) 1 Urine Bacteria (Auto) 1+ Squamous Epi Cells Auto <1 Urine Mucus (Auto) RARE Urine Ascorbic Acid NEGATIVE Stool for White Cells Stl C. Difficile GDH Ag Stl C.difficile Tox A&B Urine Opiates Screen NEGATIVE Urine Methadone Screen NEGATIVE Ur Barbiturates Screen UNCONFIRMED POSITIVE Ur Phencyclidine Scrn NEGATIVE Ur Amphetamines Screen NEGATIVE U Benzodiazepines Scrn NEGATIVE Urine Cocaine Screen NEGATIVE U Marijuana (THC) Screen NEGATIVE Serum Alcohol COVID-19 Source Blood Type Antibody Screen Laboratory 06/30/20 06/30/20 06/30/20 13:44 14:20 14:20 WBC 7.0 RBC 4.38 Hgb 15.0 Hct 41.8 MCV 95 MCH 34.3 H MCHC 35.9 RDW 13.0 Plt Count 390 Lymph % (Auto) 14.6 [place] % (Auto) 12.7 Eos % (Auto) 2.2 Baso % (Auto) 0.4 Absolute Neuts (auto) 4.9 Absolute Lymphs (auto) 1.0 Absolute Monos (auto) 0.9 Absolute Eos (auto) 0.2 Absolute Basos (auto) 0.0 Seg Neutrophils % 70.1 PT 13.4 INR 1.00 APTT 36.8 H D-Dimer 0.28 Sodium Potassium Chloride Carbon Dioxide Anion Gap BUN Creatinine Est GFR ( Amer) Est GFR (MDRD) Non-Af Glucose Calcium Magnesium Total Bilirubin Direct Bilirubin Neonat Total Bilirubin Neonat Direct Bilirubin Neonat Indirect Bili AST ALT Alkaline Phosphatase Troponin I Total Protein Albumin Urine Color Urine Appearance Urine pH Ur Specific [place] Urine Protein Urine Glucose (UA) Urine Ketones Urine Blood Urine Nitrite Urine Bilirubin Urine Urobilinogen Ur Leukocyte Esterase Urine WBC (Auto) Urine RBC (Auto) U Hyaline Cast (Auto) Urine Bacteria (Auto) Squamous Epi Cells Auto Urine Mucus (Auto) Urine Ascorbic Acid Stool for White Cells Stl C. Difficile GDH Ag Stl C.difficile Tox A&B Urine Opiates Screen Urine Methadone Screen Ur Barbiturates Screen Ur Phencyclidine Scrn Ur Amphetamines Screen U Benzodiazepines Scrn Urine Cocaine Screen U Marijuana (THC) Screen Serum Alcohol COVID-19 Source See comment Blood Type Antibody Screen 06/30/20 06/30/20 06/30/20 14:20 14:20 14:20 WBC RBC Hgb Hct MCV MCH MCHC RDW Plt Count Lymph % (Auto) [place] % (Auto) Eos % (Auto) Baso % (Auto) Absolute Neuts (auto) Absolute Lymphs (auto) Absolute Monos (auto) Absolute Eos (auto) Absolute Basos (auto) Seg Neutrophils % PT INR APTT D-Dimer Sodium 133.6 L Potassium 2.6 L* Chloride 102 Carbon Dioxide 19 L Anion Gap 13 BUN 17 Creatinine 0.78 Est GFR ( Amer) > 60 Est GFR (MDRD) Non-Af > 60 Glucose 82 Calcium 9.6 Magnesium Total Bilirubin 0.5 Direct Bilirubin 0.0 Neonat Total Bilirubin Not Reportable Neonat Direct Bilirubin Not Reportable Neonat Indirect Bili Not Reportable AST 20 ALT 94 H Alkaline Phosphatase 332 H Troponin I < 0.012 Total Protein 7.5 Albumin 4.3 Urine Color Urine Appearance Urine pH Ur Specific [place] Urine Protein Urine Glucose (UA) Urine Ketones Urine Blood Urine Nitrite Urine Bilirubin Urine Urobilinogen Ur Leukocyte Esterase Urine WBC (Auto) Urine RBC (Auto) U Hyaline Cast (Auto) Urine Bacteria (Auto) Squamous Epi Cells Auto Urine Mucus (Auto) Urine Ascorbic Acid Stool for White Cells Stl C. Difficile GDH Ag Stl C.difficile Tox A&B Urine Opiates Screen Urine Methadone Screen Ur Barbiturates Screen Ur Phencyclidine Scrn Ur Amphetamines Screen U Benzodiazepines Scrn Urine Cocaine Screen U Marijuana (THC) Screen Serum Alcohol < 10 COVID-19 Source Blood Type O POSITIVE Antibody Screen NEGATIVE 06/30/20 06/30/20 06/30/20 14:20 17:15 17:15 WBC RBC Hgb Hct MCV MCH MCHC RDW Plt Count Lymph % (Auto) [place] % (Auto) Eos % (Auto) Baso % (Auto) Absolute Neuts (auto) Absolute Lymphs (auto) Absolute Monos (auto) Absolute Eos (auto) Absolute Basos (auto) Seg Neutrophils % PT INR APTT D-Dimer Sodium Potassium Chloride Carbon Dioxide Anion Gap BUN Creatinine Est GFR ( Amer) Est GFR (MDRD) Non-Af Glucose Calcium Magnesium 1.8 Total Bilirubin Direct Bilirubin Neonat Total Bilirubin Neonat Direct Bilirubin Neonat Indirect Bili AST ALT Alkaline Phosphatase Troponin I Total Protein Albumin Urine Color Urine Appearance Urine pH Ur Specific [place] Urine Protein Urine Glucose (UA) Urine Ketones Urine Blood Urine Nitrite Urine Bilirubin Urine Urobilinogen Ur Leukocyte Esterase Urine WBC (Auto) Urine RBC (Auto) U Hyaline Cast (Auto) Urine Bacteria (Auto) Squamous Epi Cells Auto Urine Mucus (Auto) Urine Ascorbic Acid Stool for White Cells NO WBCs SEEN Stl C. Difficile GDH Ag NEGATIVE Stl C.difficile Tox A&B NEGATIVE Urine Opiates Screen Urine Methadone Screen Ur Barbiturates Screen Ur Phencyclidine Scrn Ur Amphetamines Screen U Benzodiazepines Scrn Urine Cocaine Screen U Marijuana (THC) Screen Serum Alcohol COVID-19 Source Blood Type Antibody Screen 06/30/20 06/30/20 17:15 17:15 WBC RBC Hgb Hct MCV MCH MCHC RDW Plt Count Lymph % (Auto) [place] % (Auto) Eos % (Auto) Baso % (Auto) Absolute Neuts (auto) Absolute Lymphs (auto) Absolute Monos (auto) Absolute Eos (auto) Absolute Basos (auto) Seg Neutrophils % PT INR APTT D-Dimer Sodium Potassium Chloride Carbon Dioxide Anion Gap BUN Creatinine Est GFR ( Amer) Est GFR (MDRD) Non-Af Glucose Calcium Magnesium Total Bilirubin Direct Bilirubin Neonat Total Bilirubin Neonat Direct Bilirubin Neonat Indirect Bili AST ALT Alkaline Phosphatase Troponin I Total Protein Albumin Urine Color YELLOW Urine Appearance SLIGHTLY-CLOUDY Urine pH 6.0 Ur Specific [place] 1.012 Urine Protein 30 H Urine Glucose (UA) NEGATIVE Urine Ketones NEGATIVE Urine Blood NEGATIVE Urine Nitrite POSITIVE H Urine Bilirubin NEGATIVE Urine Urobilinogen NEGATIVE Ur Leukocyte Esterase NEGATIVE Urine WBC (Auto) 4 Urine RBC (Auto) 1 U Hyaline Cast (Auto) 1 Urine Bacteria (Auto) 1+ Squamous Epi Cells Auto <1 Urine Mucus (Auto) RARE Urine Ascorbic Acid NEGATIVE Stool for White Cells Stl C. Difficile GDH Ag Stl C.difficile Tox A&B Urine Opiates Screen NEGATIVE Urine Methadone Screen NEGATIVE Ur Barbiturates Screen UNCONFIRMED POSITIVE Ur Phencyclidine Scrn NEGATIVE Ur Amphetamines Screen NEGATIVE U Benzodiazepines Scrn NEGATIVE Urine Cocaine Screen NEGATIVE U Marijuana (THC) Screen NEGATIVE Serum Alcohol COVID-19 Source Blood Type Antibody Screen Abdomen/Pelvis CT 06/30/20 00:00 IMPRESSION: Progressive small bowel and colon dilatation. Fluid throughout the colon to the level of the rectum. No high-grade obstruction. Presumed paralytic process. 0100-Hospitalist in the emergency department admitting multiple patients. Will present patient as soon as hospitalist is available. 0200-I went to round on the patient and was told by the staff that the patients IV had infiltrated and they removed it. I informed Endy Mistry RN that the patient is being admitted and will need IV access as she is NPO and needs IVF and IV potassium. I suggested that they attempt an U/S guided IV as patient is a difficult stick. 0230-Spoke to Dr. Kramer regarding patient. Patient admitted to hospitalist for ileus and hypokalemia. (PÉREZ RIVERA) - Vital Signs Vital signs: Temp Pulse Resp BP Pulse Ox 98.0 F 94 16 102/80 102 H 07/01/20 04:35 07/01/20 04:35 06/30/20 23:33 07/01/20 04:35 07/01/20 04:35 - Laboratory Laboratory results interpreted by me: 06/30/20 06/30/20 06/30/20 14:20 14:20 14:20 MCH 34.3 H APTT 36.8 H Sodium 133.6 L Potassium 2.6 L* Carbon Dioxide 19 L ALT 94 H Alkaline Phosphatase 332 H Urine Protein Urine Nitrite 06/30/20 17:15 MCH APTT Sodium Potassium Carbon Dioxide ALT Alkaline Phosphatase Urine Protein 30 H Urine Nitrite POSITIVE H Discharge <JAMAL TOMAS - Last Filed: 06/30/20 20:02> - Discharge Admitting Provider: Dr. Morgan Unit Admitted: Medical Floor <PÉREZ RIVERA - Last Filed: 07/01/20 11:09> - Discharge Clinical Impression: Ileus, Hypokalemia Condition: Stable Disposition: ADMITTED OBSERVATION
[2020-06-30 14:47] LABS: ABSOLUTE EOSINOPHILS # (AUTO) 0.2 10^3/uL (0.0-0.6); ABSOLUTE MONOCYTES (AUTO) 0.9 10^3/uL (0.1-1.4); ABSOLUTE NEUT (AUTO) 4.9 10^3/uL (1.7-8.2); BASOPHILS % (AUTO) 0.4 % (0-2); EOSINOPHILS % (AUTO) 2.2 % (0-6); HEMATOCRIT 41.8 % (36.0-47.0); LYMPHOCYTES % (AUTO) 14.6 % (13-45); MEAN CORPUSCULAR HEMOGLOBIN 34.3 pg (27.0-33.4); MEAN CORPUSCULAR HGB CONC 35.9 g/dL (32.0-36.0); MEAN CORPUSCULAR VOLUME 95 fl (80-97); MONOCYTES % (AUTO) 12.7 % (3-13); PLATELET COUNT 390 10^3/uL (150-450); RED BLOOD COUNT 4.38 10^6/uL (3.72-5.28); SEGMENTED NEUTROPHILS % (AUTO) 70.1 % (42-78); TOTAL CELLS COUNTED % (AUTO) 100 %
[2020-06-30 14:54] LABS: PROTHROMBIN TIME 13.4 SEC (11.4-15.4)
[2020-06-30 14:55] LABS: PARTIAL THROMBOPLASTIN TIME 36.8 SEC (23.5-35.8)
[2020-06-30 14:57] LABS: D-DIMER 0.28 ug/mL (0.00-0.50)
[2020-06-30 15:06] LABS: ALBUMIN 4.3 g/dL (3.5-5.0); ALKALINE PHOSPHATASE 332 U/L (38-126); ANION GAP 13 (5-19); ASPARTATE AMINO TRANSFERASE 20 U/L (14-36); BILIRUBIN,TOTAL 0.5 mg/dL (0.2-1.3); BLOOD UREA NITROGEN 17 mg/dL (7-20); CALCIUM 9.6 mg/dL (8.4-10.2); CARBON DIOXIDE 19 mmol/L (22-30); CHLORIDE 102 mmol/L (98-107); GLUCOSE 82 mg/dL (75-110); TOTAL PROTEIN 7.5 g/dL (6.3-8.2)
[2020-06-30 15:09] LABS: ALCOHOL < 10 mg/dL (NONE DETECTED)
[2020-06-30 15:10] LABS: POTASSIUM 2.6 mmol/L (3.6-5.0)
[2020-06-30] MEDS ORDERED: POTASSIUM CHLORIDE 20 MEQ PACKET PO ONE ×2 (15:16→18:00)
[2020-06-30] MEDS: POTASSI CL 20 MEQ/50 ML RIDER 20 MEQ/50 ML RTUPB IV SCH ×4 (17:45→23:10)
--- NOTE | 2020-06-30 18:07 | EKG REPORT ---
SEVERITY:- ABNORMAL ECG - SINUS RHYTHM NONSPECIFIC REPOL ABNORMALITY, DIFFUSE LEADS : Confirmed by: Kahlil Sanchez MD 30-Jun-2020 18:07:08
[2020-06-30] MEDS ORDERED: MORPHINE SULFATE 10 MG/ML INJ IV ONE ×2 (20:01→23:54)
[2020-06-30] MEDS ORDERED: ONDANSETRON HCL INJ/PF 4 MG/2 ML SDV IV ONE (20:01)
[2020-06-30 20:58] LABS: APPEARANCE,URINE SLIGHTLY-CLOUDY; BILIRUBIN,URINE NEGATIVE (NEGATIVE); COLOR,URINE YELLOW; GLUCOSE, URINE NEGATIVE (NEGATIVE); KETONES,URINE NEGATIVE (NEGATIVE); LEUKOCYTE ESTERASE,URINE NEGATIVE (NEGATIVE); NITRITE,URINE POSITIVE (NEGATIVE); PROTEIN,URINE 30 mg/dL (NEGATIVE); URINE SPECIFIC GRAVITY 1.012; UROBILINOGEN,URINE NEGATIVE mg/dL (<2.0)
[2020-06-30 21:03] LABS: URINE AMPHETAMINES SCREEN NEGATIVE; URINE BENZODIAZEPINES SCREEN NEGATIVE; URINE COCAINE SCREEN NEGATIVE; URINE MARIJUANA (THC) SCREEN NEGATIVE; URINE METHADONE SCREEN NEGATIVE; URINE PHENCYCLIDINE SCREEN NEGATIVE
[2020-06-30 21:05] LABS: URINE BARBITURATES SCREEN UNCONFIRMED POSITIVE
[2020-06-30 21:23] LABS: C DIFFICILE GDH NEGATIVE (NEGATIVE)
--- NOTE | 2020-06-30 22:43 | RADIOLOGY REPORT (SQ) ---
CLINICAL INDICATION: abd pain n/v/d. hx of ileus. . TECHNIQUE: Contrast enhanced spiral axial CT imaging was obtained of the abdomen and pelvis with multiplanar reconstructions. This exam was performed according to our departmental dose-optimization program, which includes automated exposure control, adjustment of the mA and/or kV according to patient size and/or use of iterative reconstruction techniques. Additional delayed phase imaging COMPARISON: June 26, 2020. CORRELATION: None. FINDINGS: Abdomen: The lung bases are grossly clear. The heart is of normal size. No evidence of pleural or pericardial fluid. The liver is of normal size contour and attenuation. The gallbladder is surgically absent. Mild biliary prominence, similar to prior. The pancreas is unremarkable. The spleen is unremarkable. The adrenals are unremarkable. The kidneys appear grossly normal without evidence of urolithiasis or hydronephrosis. There is no evidence of free air. No free fluid. No bulky adenopathy. Abdominal aorta is nonaneurysmal. Pelvis: The bowel demonstrate dilated loops of colon. Fluid throughout the colon to level the rectum.. Oral contrast was administered on current. Mild prominence of several loops of small bowel. There is bowel dilatation is progressive from June 26. Pelvic contents are unremarkable. The appendix is not seen. No focal inflammatory change. Visualized bones are unremarkable. IMPRESSION: Progressive small bowel and colon dilatation. Fluid throughout the colon to the level of the rectum. No high-grade obstruction. Presumed paralytic process.
[2020-06-30] MEDS ORDERED: METOCLOPRAMIDE HCL INJ/PF 10 MG/2 ML SDV IV ONE (23:54)
--- NOTE | 2020-07-01 03:01 | PDOC H&P ---
History of Present Illness Patient complains of: Diarrhea, nausea, dizziness History of Present Illness: JADE BEAL is a 45 year old female with a history of gastric bypass surgery with multiple revisions who now presents with nausea with dry hiccups, watery diarrhea, generalized weakness and dizziness especially when she gets up from sitting position for the past few days. She states that she was evaluated at the ED 4 days but symptoms failed to improve. She denies cough, fever, chills, chest pain, shortness of breath, palpitation or passing out. She also denies recent sick contact history. Past Medical History Neurological Medical History: Reports: Migraine Hematology: Reports: Anemia Past Surgical History Past Surgical History: Reports: Section, Cholecystectomy, Gastric Bypass Surgery - With revision, Hysterectomy Social History Information Source: Patient Smoking Status: Never Smoker Electronic Cigarette use?: No Hx Recreational Drug Use: No Drugs: None - Advance Directive Resuscitation Status: Full Code Family History Family History: Reviewed & Not Pertinent Parental Family History Reviewed: Yes Children Family History Reviewed: Yes Sibling(s) Family History Reviewed.: Yes Medication/Allergy Home Medications: Famotidine [Pepcid 20 mg Tablet] 20 mg PO BID #20 tablet 06/26/20 Polyethylene Glycol 3350 [Miralax Powder 17 gm/Packet] 1 packet PO DAILY PRN #1 pkg 06/26/20 Promethazine HCl [Phenergan 25 mg Tablet] 25 mg PO Q6H PRN #20 tablet 06/26/20 Sucralfate [Carafate 1 gm Tablet] 1 gm PO QID #20 tablet 06/26/20 Allergies/Adverse Reactions: No Known Allergies Allergy (Verified 06/12/20 10:31) Review of Systems Constitutional: PRESENT: as per HPI Eyes: ABSENT: visual disturbances Ears: ABSENT: hearing changes Nose, Mouth, and Throat: ABSENT: as per HPI, headache(s), mouth pain, sore throat, vertigo, other Cardiovascular: ABSENT: chest pain, dyspnea on exertion, edema, orthropnea, palpitations Respiratory: ABSENT: cough, hemoptysis Gastrointestinal: PRESENT: as per HPI Genitourinary: ABSENT: dysuria, hematuria Musculoskeletal: ABSENT: joint swelling Integumentary: ABSENT: rash, wounds Neurological: ABSENT: abnormal gait, abnormal speech, confusion, dizziness, focal weakness, syncope Psychiatric: ABSENT: anxiety, depression, homidical ideation, suicidal ideation Endocrine: ABSENT: cold intolerance, heat intolerance, polydipsia, polyuria Hematologic/Lymphatic: ABSENT: easy bleeding, easy bruising Physical Exam Vital Signs: Temp Pulse Resp BP Pulse Ox 98.9 F 101 H 16 118/80 96 06/30/20 23:33 06/30/20 23:33 06/30/20 23:33 06/30/20 23:33 06/30/20 23:33 Intake & Output 06/29/20 06/30/20 07/01/20 06:59 06:59 06:59 Intake Total 350 Balance 350 Weight 68 kg Additional comments: GENERAL APPEARANCE: Alert and oriented x3, no acute distress HEENT: Normocephalic and atraumatic. No scleral icterus. Dry oral mucosa NECK: Supple. No lymphadenopathy or tenderness. No carotid bruit. No JVD CHEST: Symmetric. Nontender to palpation. LUNGS: Clear with good air entry bilaterally HEART: Regular rate and rhythm with normal S1 and S2. No murmurs, gallops, or rubs. ABDOMEN: Has a midline scar from previous surgery. Flat, soft, active bowel sounds, no direct or rebound tenderness. No organomegaly detected. No CVA tenderness EXTREMITIES: No cyanosis, clubbing, or edema. MUSCULOSKELETAL: No deformity, atrophy or swelling noted PSYCHIATRIC: The patient is awake, alert, and oriented x3. Recent and remote memory is intact. Appropriate mood and affect. SKIN: Warm, dry, and well perfused. No lesions or rashes are noted. NEUROLOGIC: No focal sensory or motor deficits are noted. Results Laboratory Results: 06/30/20 14:20 06/30/20 14:20 06/30/20 06/30/20 06/30/20 14:20 14:20 14:20 WBC 7.0 RBC 4.38 Hgb 15.0 Hct 41.8 MCV 95 MCH 34.3 H MCHC 35.9 RDW 13.0 Plt Count 390 Seg Neutrophils % 70.1 Sodium 133.6 L Potassium 2.6 L* Chloride 102 Carbon Dioxide 19 L Anion Gap 13 BUN 17 Creatinine 0.78 Est GFR ( Amer) > 60 Glucose 82 Calcium 9.6 Magnesium Total Bilirubin 0.5 AST 20 Alkaline Phosphatase 332 H Total Protein 7.5 Albumin 4.3 Urine Color Urine Appearance Urine pH Ur Specific [place] Urine Protein Urine Glucose (UA) Urine Ketones Urine Blood Urine Nitrite Ur Leukocyte Esterase Urine WBC (Auto) Urine RBC (Auto) Stool for White Cells Blood Type O POSITIVE Antibody Screen NEGATIVE 06/30/20 06/30/20 06/30/20 14:20 17:15 17:15 WBC RBC Hgb Hct MCV MCH MCHC RDW Plt Count Seg Neutrophils % Sodium Potassium Chloride Carbon Dioxide Anion Gap BUN Creatinine Est GFR ( Amer) Glucose Calcium Magnesium 1.8 Total Bilirubin AST Alkaline Phosphatase Total Protein Albumin Urine Color YELLOW Urine Appearance SLIGHTLY-CLOUDY Urine pH 6.0 Ur Specific [place] 1.012 Urine Protein 30 H Urine Glucose (UA) NEGATIVE Urine Ketones NEGATIVE Urine Blood NEGATIVE Urine Nitrite POSITIVE H Ur Leukocyte Esterase NEGATIVE Urine WBC (Auto) 4 Urine RBC (Auto) 1 Stool for White Cells NO WBCs SEEN Blood Type Antibody Screen 06/30/20 14:20 Troponin I < 0.012 Impressions: Abdomen/Pelvis CT 06/30/20 00:00 IMPRESSION: Progressive small bowel and colon dilatation. Fluid throughout the colon to the level of the rectum. No high-grade obstruction. Presumed paralytic process. Assessment and Plan - Diagnosis (1) Ileus Is this a current diagnosis for this admission?: Yes Plan: Presents with abdominal pain, nausea, vomiting and diarrhea CT abdomen shows progressive small and large bowel dilation with fluid throughout suggestive of possible ileus Will keep patient n.p.o. for bowel rest May consider NG tube insertion if no improvement Continue IV hydration Closely monitor vital sign (2) COVID-19 virus infection Is this a current diagnosis for this admission?: Yes Plan: Due to patient concerning presenting symptom we will do COVID-[address] patient on special airborne isolation in the meantime (3) Hypokalemia Is this a current diagnosis for this admission?: Yes Plan: Serum potassium was 2.6 on presentation Patient was given 80 mEq of potassium at the ED Likely contributing to ileus We will monitor potassium level (4) Urinary tract infection Is this a current diagnosis for this admission?: Yes Plan: UA was positive for nitrites Started patient on ciprofloxacin 500 mg daily for 3 days - Time Time Spent with patient: 35 or more minutes Total Critical Time (Minutes): 35 Medications reviewed and adjusted accordingly: Yes Anticipated Discharge Disposition: Home, Self Care Anticipated Discharge Timeframe: within 48 hours - Inpatient Certification Medical Necessity: Failure to Improve With Outpatient Therapy, Need Close Monitoring Due to Risk of Patient Decompensation, Need For IV Fluids Post Hospital Care: D/C or Transfer Summary
[2020-07-01] MEDS ORDERED: CIPROFLOXACIN HCL 500 MG TABLET PO ONE (03:15)
[2020-07-01 08:57] LABS: ANION GAP 15 (5-19); BLOOD UREA NITROGEN 13 mg/dL (7-20); CALCIUM 9.4 mg/dL (8.4-10.2); CARBON DIOXIDE 12 mmol/L (22-30); CHLORIDE 108 mmol/L (98-107); GLUCOSE 83 mg/dL (75-110)
[2020-07-01 09:11] LABS: POTASSIUM 2.9 mmol/L (3.6-5.0)
[2020-07-01] MEDS: FAMOTIDINE INJ/PF 20 MG/2 ML SDV IV SCH ×2 (11:46→22:11)
[2020-07-01] MEDS: ENOXAPARIN SODIUM INJ 40 MG/0.4 ML DISP.SYRIN SUBCUT SCH (11:49)
--- NOTE | 2020-07-01 15:07 | PDOC PROGRESS REPORT ---
Subjective Progress Note for:: 07/01/20 Subjective:: JADE BEAL is a 45 year old female with a history of gastric bypass surgery with multiple revisions who was admitted 07/01/2020 with nausea vomiting, dehydration, hypokalemia, all secondary to ileus. Patient was seen on morning rounds. She is found resting in bed, comfortably, on room air. She reports continued nausea though without emesis. She has intermittent cramping abdominal discomfort. She confirms more episodes in the past. She denies fever, chills, chest pain, palpitations, dyspnea, cough. Confirms diarrhea. She has no other questions or concerns at this time. No concerns per nursing. Reason For Visit: ILEUS, HYPOKALEMIA Physical Exam Vital Signs: Temp Pulse Resp BP Pulse Ox 97.8 F 98 16 102/80 99 07/01/20 14:59 07/01/20 14:59 07/01/20 14:59 07/01/20 14:59 07/01/20 14:59 Intake & Output 06/30/20 07/01/20 07/02/20 06:59 06:59 06:59 Intake Total 350 Balance 350 Weight 68 kg General appearance: PRESENT: no acute distress, disheveled, thin, well- developed, well-nourished Head exam: PRESENT: atraumatic, normocephalic Eye exam: PRESENT: conjunctiva pink, EOMI, PERRLA. ABSENT: scleral icterus Mouth exam: PRESENT: dry mucosa, tongue midline Respiratory exam: PRESENT: clear to auscultation juana, symmetrical, unlabored. ABSENT: rales, rhonchi, wheezes Cardiovascular exam: PRESENT: RRR, +S1, +S2. ABSENT: diastolic murmur, rubs, systolic murmur Pulses: PRESENT: normal dorsalis pedis pul Vascular exam: PRESENT: normal capillary refill GI/Abdominal exam: PRESENT: normal bowel sounds, soft, tenderness. ABSENT: distended, guarding, mass, organolmegaly, rebound Rectal exam: PRESENT: deferred Extremities exam: PRESENT: full ROM. ABSENT: calf tenderness, clubbing, pedal edema Musculoskeletal exam: PRESENT: ambulatory Neurological exam: PRESENT: alert, awake, oriented to person, oriented to place, oriented to time, oriented to situation, CN II-XII grossly intact. ABSENT: motor sensory deficit Psychiatric exam: PRESENT: appropriate affect, normal mood. ABSENT: homicidal ideation, suicidal ideation Skin exam: PRESENT: dry, intact, warm. ABSENT: cyanosis, rash Results Laboratory Results: 06/30/20 14:20 07/01/20 08:14 06/30/20 06/30/20 06/30/20 14:20 14:20 14:20 Sodium 133.6 L Potassium 2.6 L* Chloride 102 Carbon Dioxide 19 L Anion Gap 13 BUN 17 Creatinine 0.78 Est GFR ( Amer) > 60 Glucose 82 Lactic Acid Calcium 9.6 Magnesium 1.8 Total Bilirubin 0.5 AST 20 Alkaline Phosphatase 332 H Total Protein 7.5 Albumin 4.3 Urine Color Urine Appearance Urine pH Ur Specific [place] Urine Protein Urine Glucose (UA) Urine Ketones Urine Blood Urine Nitrite Ur Leukocyte Esterase Urine WBC (Auto) Urine RBC (Auto) Stool for White Cells Blood Type O POSITIVE Antibody Screen NEGATIVE 06/30/20 06/30/20 07/01/20 17:15 17:15 08:14 Sodium 135.3 L Potassium 2.9 L* Chloride 108 H Carbon Dioxide 12 L Anion Gap 15 BUN 13 Creatinine 0.62 Est GFR ( Amer) > 60 Glucose 83 Lactic Acid Calcium 9.4 Magnesium Total Bilirubin AST Alkaline Phosphatase Total Protein Albumin Urine Color YELLOW Urine Appearance SLIGHTLY-CLOUDY Urine pH 6.0 Ur Specific [place] 1.012 Urine Protein 30 H Urine Glucose (UA) NEGATIVE Urine Ketones NEGATIVE Urine Blood NEGATIVE Urine Nitrite POSITIVE H Ur Leukocyte Esterase NEGATIVE Urine WBC (Auto) 4 Urine RBC (Auto) 1 Stool for White Cells NO WBCs SEEN Blood Type Antibody Screen 07/01/20 11:47 Sodium Potassium Chloride Carbon Dioxide Anion Gap BUN Creatinine Est GFR ( Amer) Glucose Lactic Acid < 0.5 L Calcium Magnesium Total Bilirubin AST Alkaline Phosphatase Total Protein Albumin Urine Color Urine Appearance Urine pH Ur Specific [place] Urine Protein Urine Glucose (UA) Urine Ketones Urine Blood Urine Nitrite Ur Leukocyte Esterase Urine WBC (Auto) Urine RBC (Auto) Stool for White Cells Blood Type Antibody Screen 06/30/20 14:20 Troponin I < 0.012 Impressions: Abdomen/Pelvis CT 06/30/20 00:00 IMPRESSION: Progressive small bowel and colon dilatation. Fluid throughout the colon to the level of the rectum. No high-grade obstruction. Presumed paralytic process. Assessment and Plan - Diagnosis (1) Ileus Is this a current diagnosis for this admission?: Yes Plan: Presents with abdominal pain, nausea, vomiting and diarrhea CT abdomen shows progressive small and large bowel dilation with fluid throughout suggestive of possible ileus Admitted to the medical floor. Will keep patient n.p.o. for bowel rest May consider NG tube insertion if no improvement Continue IV hydration Antiemetics and analgesics as needed. Closely monitor vital sign Encourage ambulation. (2) Hypokalemia Is this a current diagnosis for this admission?: Yes Plan: K 2.9 Likely contributing to ileus Additional IV replacement today We will monitor potassium level (3) Urinary tract infection Qualifiers: Urinary tract infection type: acute cystitis Is this a current diagnosis for this admission?: Yes Plan: UA was positive for nitrites Urine culture shows gram negative rods. Started patient on ciprofloxacin 500 mg daily for 3 days (4) COVID-19 virus infection Is this a current diagnosis for this admission?: Yes Plan: Due to patient concerning presenting symptom we will do COVID-[address] patient on special airborne isolation in the meantime - Time Time Spent with patient: 25-34 minutes Medications reviewed and adjusted accordingly: Yes Anticipated Discharge Disposition: Home, Self Care Anticipated Discharge Timeframe: within 72 hours
[2020-07-01] MEDS: ONDANSETRON HCL INJ/PF 4 MG/2 ML SDV IV PRN (15:22)
[2020-07-01] MEDS: MORPHINE SULFATE 10 MG/ML INJ IV PRN ×2 (15:22→22:12)
[2020-07-01] MEDS ORDERED: NORMAL SALINE 1000 ML 1,000 ML IV ONE (15:30)
--- NOTE | 2020-07-01 15:49 | RADIOLOGY REPORT (SQ) ---
EXAM DESCRIPTION: PICC INSERTION IMAGES COMPLETED DATE/TIME: 07/01/2020 1:46 pm REASON FOR STUDY: numerous failed IV attempts COMPARISON: None. FLUOROSCOPY TIME: 30 seconds 1 images saved to PACS. TECHNIQUE: Fluoroscopic and ultrasound guided PICC placement. LIMITATIONS: None. PROCEDURE: After written consent and assessment were obtained, the patient was brought into the fluo roscopy room and placed supine on the table. Ultrasound evaluation of potential access sites were per formed. After successfully identifying a patent left upper extremity brachiocephalic vein, the left u pper arm was prepped and draped in a sterile fashion along with the ultrasound probe. The entry site was anesthetized with 1% lidocaine. A 21 gauge 7 cm needle was advanced through the skin and into the left brachiocephalic vein under live ultrasound guidance. An ultrasound image was saved to PACS con firming access site. A .018 guide wire was then inserted through the needle and into the venous syst em. The needle was then removed and an 11 blade scalpel was used to make a 1cm skin incision. A 5 fr peel-away sheath was advanced over the wire and into the venous system. A measurement was then made using the existing wire and live fluoroscopic guidance. The wire was then removed and trimmed. The PI CC was advanced through the peel-away sheath and into the venous system. The peel-away sheath was rem danielle and the catheter was adhered to the patients arm with a stat lock. The catheter was then aspirat ed and flushed and a sterile bandage was placed over the access site. A fluoroscopic spot image was saved to PACS confirming the catheter tip within the SVC. IMPRESSION: SUCCESSFUL PLACEMENT OF A 5 FR DUAL LUMEN 37 CM PICC IN THE LEFT BRACHIOCEPHALIC VEIN. COMMENT: Patient medication list reviewed: Yes- Quality ID# 130:Eligible professional attests to doc umenting in the medical record they obtained, updated, or reviewed the patient's current medications. . Quality ID 145: Final reports for procedures using fluoroscopy that document radiation exposure jaimee nancy, or exposure time and number of fluorographic images (if radiation exposure indices are not avail able) Quality ID #76: The patient was prepped and draped using maximum sterile barrier technique including cap, mask, sterile gown, sterile gloves, a large sterile sheet, hand hygiene, and 2% Chlorhexidine fo r cutaneous antisepsis. When ultrasound is used, sterile ultrasound techniques are followed requiring sterile gel and sterile probes. TECHNICAL DOCUMENTATION: JOB ID: [id number] 2010 [employer]- All Rights Reserved Reading location - IP/workstation name: [id number]
[2020-07-01] MEDS: POTASSI CL 20 MEQ/50 ML RIDER 20 MEQ/50 ML RTUPB IV SCH ×4 (16:37→22:45)
[2020-07-01] MEDS: NORMAL SALINE 1000 ML 1,000 ML IV PRN ×2 (16:38→22:16)
[2020-07-01] MEDS ORDERED: CIPROFLOXACIN HCL 500 MG TABLET PO SCH (22:00)
[2020-07-02] MEDS ORDERED: DEXTROSE 50%-WATER 25 GM/50 ML DISP.SYRIN IV ONE (01:17)
[2020-07-02] MEDS ORDERED: GLUCAGON,HUMAN RECOMB 1 MG INJ IM PRN (01:30)
[2020-07-02] MEDS ORDERED: DEXTROSE 50%-WATER SYRINGE 12.5 GM/25 ML DOSE IV PRN (01:30)
[2020-07-02] MEDS ORDERED: DEXTROSE 40% GEL 15 GM TUBE PO PRN (01:30)
[2020-07-02] MEDS ORDERED: DEXTROSE 50%-WATER SYRINGE 25 GM/50 ML DOSE IV PRN (01:30)
[2020-07-02] MEDS ORDERED: DEXTROSE 40% GEL 15 GM TUBE X 2 PO PRN (01:30)
[2020-07-02] MEDS: ONDANSETRON HCL INJ/PF 4 MG/2 ML SDV IV PRN (04:41)
[2020-07-02] MEDS: MORPHINE SULFATE 10 MG/ML INJ IV PRN ×2 (04:41→10:45)
[2020-07-02] MEDS: NORMAL SALINE 1000 ML 1,000 ML IV PRN (05:48)
[2020-07-02 06:21] LABS: ANION GAP 10 (5-19); BLOOD UREA NITROGEN 7 mg/dL (7-20); CARBON DIOXIDE 13 mmol/L (22-30); CHLORIDE 116 mmol/L (98-107)
[2020-07-02 06:26] LABS: HEMATOCRIT 27.5 % (36.0-47.0); MEAN CORPUSCULAR HEMOGLOBIN 34.4 pg (27.0-33.4); MEAN CORPUSCULAR HGB CONC 35.9 g/dL (32.0-36.0); MEAN CORPUSCULAR VOLUME 96 fl (80-97); PLATELET COUNT 247 10^3/uL (150-450); RED BLOOD COUNT 2.88 10^6/uL (3.72-5.28); RED CELL DISTRIBUTION WIDTH 12.9 % (11.5-14.0); WHITE BLOOD COUNT 3.9 10^3/uL (4.0-10.5)
[2020-07-02 06:27] LABS: HEMOGLOBIN 9.9 g/dL (12.0-15.5)
[2020-07-02 06:30] LABS: CALCIUM 6.9 mg/dL (8.4-10.2)
[2020-07-02 06:31] LABS: GLUCOSE 32 mg/dL (75-110); POTASSIUM 2.5 mmol/L (3.6-5.0)
[2020-07-02] MEDS: POTASSIUM CHLORIDE 20 MEQ/50 ML RTU IV SCH ×3 (07:23→12:16)
[2020-07-02] MEDS: MAGNESIUM SULFATE/D5W 1 GM/100 ML RTUPB IV SCH ×2 (08:09→10:46)
[2020-07-02] MEDS: ENOXAPARIN SODIUM INJ 40 MG/0.4 ML DISP.SYRIN SUBCUT SCH (10:46)
[2020-07-02] MEDS: FAMOTIDINE INJ/PF 20 MG/2 ML SDV IV SCH ×2 (10:46→21:07)
[2020-07-02] MEDS: DEXTROSE 5%-NORMAL SALINE 1,000 ML IV PRN (14:31)
[2020-07-02] MEDS ORDERED: NORMAL SALINE 1000 ML 2,000 ML IV ONE (18:31)
--- NOTE | 2020-07-02 18:36 | PDOC PROGRESS REPORT ---
Subjective Progress Note for:: 07/02/20 Subjective:: JADE BEAL is a 45 year old female with a history of gastric bypass surgery with multiple revisions who was admitted 07/01/2020 with nausea vomiting, dehydration, hypokalemia, all secondary to ileus. Patient was seen on afternoon rounds. She is found resting in bed, comfortably, on room air. She reports continued nausea though without emesis. She has intermittent cramping abdominal discomfort. Diarrhea has resolved. Asks to advance her diet. She denies fever, chills, chest pain, palpitations, dyspnea, cough. She has no other questions or concerns at this time. No concerns per nursing. Reason For Visit: ILEUS, HYPOKALEMIA Physical Exam Vital Signs: Temp Pulse Resp BP Pulse Ox 97.5 F 75 12 92/60 L 98 07/02/20 08:58 07/02/20 08:58 07/02/20 08:58 07/02/20 08:58 07/02/20 08:58 Intake & Output 07/01/20 07/02/20 07/03/20 06:59 06:59 06:59 Intake Total 350 3038 1338 Output Total 0 Balance 350 3038 1338 Weight 68 kg 68 kg General appearance: PRESENT: no acute distress, disheveled, thin, well-developed Head exam: PRESENT: atraumatic, normocephalic Eye exam: PRESENT: conjunctiva pink, EOMI, PERRLA. ABSENT: scleral icterus Mouth exam: PRESENT: moist, tongue midline Teeth exam: PRESENT: poor dentation Respiratory exam: PRESENT: clear to auscultation juana, symmetrical, unlabored. ABSENT: rales, rhonchi, wheezes Cardiovascular exam: PRESENT: RRR, +S1, +S2. ABSENT: diastolic murmur, rubs, systolic murmur Pulses: PRESENT: normal dorsalis pedis pul Vascular exam: PRESENT: normal capillary refill GI/Abdominal exam: PRESENT: normal bowel sounds, soft, tenderness - intermittent abd cramping. ABSENT: distended, guarding, mass, organolmegaly, rebound Rectal exam: PRESENT: deferred Extremities exam: PRESENT: full ROM. ABSENT: calf tenderness, clubbing, pedal edema Musculoskeletal exam: PRESENT: ambulatory Neurological exam: PRESENT: alert, awake, oriented to person, oriented to place, oriented to time, oriented to situation, CN II-XII grossly intact. ABSENT: motor sensory deficit Psychiatric exam: PRESENT: anxious, normal mood. ABSENT: homicidal ideation, suicidal ideation Skin exam: PRESENT: dry, intact, warm. ABSENT: cyanosis, rash Results Laboratory Results: 07/02/20 06:00 07/02/20 06:00 07/02/20 07/02/20 07/02/20 06:00 06:00 06:00 WBC 3.9 L RBC 2.88 L Hgb 9.9 L D Hct 27.5 L MCV 96 MCH 34.4 H MCHC 35.9 RDW 12.9 Plt Count 247 Sodium 138.8 Potassium 2.5 L* Chloride 116 H Carbon Dioxide 13 L Anion Gap 10 BUN 7 Creatinine 0.54 Est GFR ( Amer) > 60 Glucose 32 L* Calcium 6.9 L* Magnesium 1.5 L Albumin 2.1 L 06/30/20 17:15 Clean Catch Midstream Urine Culture - Final Escherichia Coli 06/30/20 14:20 Troponin I < 0.012 Impressions: Abdomen/Pelvis CT 06/30/20 00:00 IMPRESSION: Progressive small bowel and colon dilatation. Fluid throughout the colon to the level of the rectum. No high-grade obstruction. Presumed paralytic process. PICC Line Insertion 07/01/20 00:00 IMPRESSION: SUCCESSFUL PLACEMENT OF A 5 FR DUAL LUMEN 37 CM PICC IN THE LEFT BRACHIOCEPHALIC VEIN. Assessment and Plan - Diagnosis (1) Ileus Is this a current diagnosis for this admission?: Yes Plan: Presents with abdominal pain, nausea, vomiting and diarrhea CT abdomen shows progressive small and large bowel dilation with fluid throughout suggestive of possible ileus Admitted to the medical floor. Cautiously advance to clear liquids today; so far tolerating well. May consider NG tube insertion if no improvement Continue IV hydration Antiemetics and analgesics as needed. Avoid narcotics. Will trial Bentyl. Encourage ambulation. (2) Hypokalemia Is this a current diagnosis for this admission?: Yes Plan: Likely contributing to ileus Magnesium has been replaced. Additional IV replacement today We will monitor potassium level (3) Urinary tract infection Qualifiers: Urinary tract infection type: acute cystitis Is this a current diagnosis for this admission?: Yes Plan: UA was positive for nitrites Urine culture shows E coli resistant to Cipro. Discontinue Cipro. Start Ceftriaxone. (4) COVID-19 virus infection Is this a current diagnosis for this admission?: Yes Plan: Due to patient concerning presenting symptom we will do COVID-[address] patient on special airborne isolation in the meantime (5) Hypomagnesemia Is this a current diagnosis for this admission?: Yes Plan: Mag 1.5 IV replacement today Follow up labs. - Time Time Spent with patient: 25-34 minutes Medications reviewed and adjusted accordingly: Yes Anticipated Discharge Disposition: Home, Self Care Anticipated Discharge Timeframe: within 48 hours
[2020-07-02] MEDS: CEFTRIAXONE 1 GM/D5W RTU 1 GM/50 ML RTUPB IV SCH (18:44)
[2020-07-02] MEDS: SUCRALFATE 1 GM TABLET PO SCH (21:07)
[2020-07-02] MEDS: DICYCLOMINE HCL 20 MG TABLET PO PRN (21:14)
[2020-07-03] MEDS: DEXTROSE 5%-NORMAL SALINE 1,000 ML IV PRN (02:40)
[2020-07-03 05:58] LABS: ABSOLUTE RETICS # 0.043 10^6/uL (0.028-0.122); HEMATOCRIT 33.8 % (36.0-47.0); MEAN CORPUSCULAR HEMOGLOBIN 33.5 pg (27.0-33.4); MEAN CORPUSCULAR HGB CONC 35.6 g/dL (32.0-36.0); MEAN CORPUSCULAR VOLUME 94 fl (80-97); PLATELET COUNT 304 10^3/uL (150-450); RED BLOOD COUNT 3.59 10^6/uL (3.72-5.28); RED CELL DISTRIBUTION WIDTH 13.1 % (11.5-14.0); WHITE BLOOD COUNT 5.5 10^3/uL (4.0-10.5)
[2020-07-03 06:15] LABS: BLOOD UREA NITROGEN 2 mg/dL (7-20); CALCIUM 8.2 mg/dL (8.4-10.2); CHLORIDE 108 mmol/L (98-107); GLUCOSE 98 mg/dL (75-110); IRON(TIBC) 47.8 ug/dL (37-170)
[2020-07-03 06:41] LABS: ANION GAP 7 (5-19)
[2020-07-03 07:25] LABS: CARBON DIOXIDE 23 mmol/L (22-30)
[2020-07-03 07:29] LABS: POTASSIUM 2.9 mmol/L (3.6-5.0)
[2020-07-03] MEDS ORDERED: POTASSIUM CHLORIDE 10 MEQ TABLET.ER PO ONE (07:34)
[2020-07-03] MEDS: POTASSI CL 20 MEQ/50 ML RIDER 20 MEQ/50 ML RTUPB IV SCH ×2 (07:54→09:49)
[2020-07-03] MEDS ORDERED: INFLUENZA QUAD (6MOS+) 2020-21 VAC 0.5 ML SYR IM ONE (08:00)
[2020-07-03] MEDS: FAMOTIDINE INJ/PF 20 MG/2 ML SDV IV SCH ×2 (09:48→21:35)
[2020-07-03] MEDS: SUCRALFATE 1 GM TABLET PO SCH ×4 (09:48→21:35)
[2020-07-03] MEDS: ENOXAPARIN SODIUM INJ 40 MG/0.4 ML DISP.SYRIN SUBCUT SCH (09:48)
--- NOTE | 2020-07-03 11:57 | PDOC PROGRESS REPORT ---
Subjective Progress Note for:: 07/03/20 Subjective:: JADE BEAL is a 45 year old female with a history of gastric bypass surgery with multiple revisions who was admitted 07/01/2020 with nausea vomiting, dehydration, hypokalemia, all secondary to ileus. Patient was seen on morning rounds. She is found resting in bed, comfortably, on room air. She reports nausea has resolved. She has intermittent cramping abdominal discomfort; although this is much improved and she has not required pain medication. She asks to advance her diet. She denies fever, chills, chest pain, palpitations, dyspnea, cough. She has no other questions or concerns at this time. No concerns per nursing. Reason For Visit: ILEUS, HYPOKALEMIA Physical Exam Vital Signs: Temp Pulse Resp BP Pulse Ox 97.4 F 80 16 115/74 99 07/03/20 10:00 07/03/20 08:05 07/03/20 08:05 07/03/20 08:05 07/03/20 08:05 Intake & Output 07/02/20 07/03/20 07/04/20 06:59 06:59 06:59 Intake Total 3038 3406 48 Output Total 0 Balance 3038 3406 48 Weight 68 kg 68 kg General appearance: PRESENT: no acute distress, disheveled, well-developed, well-nourished Head exam: PRESENT: atraumatic, normocephalic Eye exam: PRESENT: conjunctiva pink, EOMI, PERRLA. ABSENT: scleral icterus Mouth exam: PRESENT: moist, tongue midline Respiratory exam: PRESENT: clear to auscultation juana, symmetrical, unlabored. ABSENT: rales, rhonchi, wheezes Cardiovascular exam: PRESENT: RRR, +S1, +S2. ABSENT: diastolic murmur, rubs, systolic murmur Vascular exam: PRESENT: normal capillary refill GI/Abdominal exam: PRESENT: normal bowel sounds, soft. ABSENT: distended, guarding, mass, organolmegaly, rebound, tenderness Rectal exam: PRESENT: deferred Extremities exam: PRESENT: full ROM. ABSENT: calf tenderness, clubbing, pedal edema Musculoskeletal exam: PRESENT: ambulatory Neurological exam: PRESENT: alert, awake, oriented to person, oriented to place, oriented to time, oriented to situation, CN II-XII grossly intact. ABSENT: motor sensory deficit Psychiatric exam: PRESENT: anxious, appropriate affect, normal mood. ABSENT: homicidal ideation, suicidal ideation Skin exam: PRESENT: dry, intact, warm. ABSENT: cyanosis, rash Results Laboratory Results: 07/03/20 05:25 07/03/20 05:25 07/03/20 07/03/20 05:25 05:25 WBC 5.5 RBC 3.59 L Hgb 12.0 D Hct 33.8 L MCV 94 MCH 33.5 H MCHC 35.6 RDW 13.1 Plt Count 304 Retic Count (auto) 1.20 Sodium 138.1 Potassium 2.9 L* Chloride 108 H Carbon Dioxide 23 D Anion Gap 7 BUN 2 L Creatinine 0.43 L Est GFR ( Amer) > 60 Glucose 98 Calcium 8.2 L Magnesium 2.0 Iron 47.8 TIBC 276 % Saturation 17 Ferritin 78.60 Vitamin B12 547.0 Folate 13.20 06/30/20 17:15 Clean Catch Midstream Urine Culture - Final Escherichia Coli 06/30/20 14:20 Troponin I < 0.012 Impressions: Abdomen/Pelvis CT 06/30/20 00:00 IMPRESSION: Progressive small bowel and colon dilatation. Fluid throughout the colon to the level of the rectum. No high-grade obstruction. Presumed paralytic process. PICC Line Insertion 07/01/20 00:00 IMPRESSION: SUCCESSFUL PLACEMENT OF A 5 FR DUAL LUMEN 37 CM PICC IN THE LEFT BRACHIOCEPHALIC VEIN. Assessment and Plan - Diagnosis (1) Ileus Is this a current diagnosis for this admission?: Yes Plan: Improved; n/v/d have resolved, pain is significantly decreased. Tolerating oral intake. Presents with abdominal pain, nausea, vomiting and diarrhea CT abdomen shows progressive small and large bowel dilation with fluid throughout suggestive of possible ileus Admitted to the medical floor. Advance to soft, low residue, diet. Antiemetics and analgesics as needed. Avoid narcotics. Will trial Bentyl. Encourage ambulation. (2) Hypokalemia Is this a current diagnosis for this admission?: Yes Plan: Likely contributing to ileus Magnesium has been replaced. Additional IV and oral replacement today We will monitor potassium level (3) Urinary tract infection Qualifiers: Urinary tract infection type: acute cystitis Is this a current diagnosis for this admission?: Yes Plan: UA was positive for nitrites Urine culture shows E coli resistant to Cipro. Discontinue Cipro. Start Ceftriaxone; Day #2. (4) Hypomagnesemia Is this a current diagnosis for this admission?: Yes Plan: Replete. Mag 1.5-> 2.0 Follow up labs. (5) Hypocalcemia Is this a current diagnosis for this admission?: Yes Plan: Improved; 6.9-> 8.2 Daily calcium supplementation. (6) COVID-19 virus infection Is this a current diagnosis for this admission?: Yes Plan: Ruled out. COVID negative. - Time Time Spent with patient: 25-34 minutes Medications reviewed and adjusted accordingly: Yes Anticipated Discharge Disposition: Home, Self Care Anticipated Discharge Timeframe: within 24 hours
[2020-07-03] MEDS ORDERED: DICYCLOMINE HCL 20 MG TABLET ONE (18:08)
[2020-07-03] MEDS: CALCIUM CARBONATE 600 MG/VITAMIN D3 400 UNIT TABLET PO SCH (18:26)
[2020-07-03] MEDS: DICYCLOMINE HCL 20 MG TABLET PO PRN (18:26)
[2020-07-03] MEDS: ONDANSETRON HCL INJ/PF 4 MG/2 ML SDV IV PRN (18:28)
[2020-07-03] MEDS: CEFTRIAXONE 1 GM/D5W RTU 1 GM/50 ML RTUPB IV SCH (18:34)
[2020-07-04] MEDS: CALCIUM CARBONATE 600 MG/VITAMIN D3 400 UNIT TABLET PO SCH (09:43)
[2020-07-04] MEDS: ENOXAPARIN SODIUM INJ 40 MG/0.4 ML DISP.SYRIN SUBCUT SCH (09:43)
[2020-07-04] MEDS: FAMOTIDINE INJ/PF 20 MG/2 ML SDV IV SCH (09:43)
[2020-07-04] MEDS: ONDANSETRON HCL INJ/PF 4 MG/2 ML SDV IV PRN (09:43)
[2020-07-04] MEDS: SUCRALFATE 1 GM TABLET PO SCH (09:43)
[2020-07-04 10:39] LABS: HEMATOCRIT 35.4 % (36.0-47.0); HEMOGLOBIN 12.5 g/dL (12.0-15.5); MEAN CORPUSCULAR HEMOGLOBIN 33.5 pg (27.0-33.4); MEAN CORPUSCULAR HGB CONC 35.3 g/dL (32.0-36.0); MEAN CORPUSCULAR VOLUME 95 fl (80-97); PLATELET COUNT 345 10^3/uL (150-450); RED BLOOD COUNT 3.74 10^6/uL (3.72-5.28); RED CELL DISTRIBUTION WIDTH 13.1 % (11.5-14.0); WHITE BLOOD COUNT 7.9 10^3/uL (4.0-10.5)
[2020-07-04 11:02] LABS: ANION GAP 8 (5-19); BLOOD UREA NITROGEN 4 mg/dL (7-20); CALCIUM 8.6 mg/dL (8.4-10.2); CARBON DIOXIDE 26 mmol/L (22-30); CHLORIDE 103 mmol/L (98-107); POTASSIUM 3.3 mmol/L (3.6-5.0)
[2020-07-04 11:11] LABS: GLUCOSE 57 mg/dL (75-110)
[2020-07-04] MEDS ORDERED: POTASSIUM CHLORIDE 10 MEQ TABLET.ER PO ONE (11:30)
--- NOTE | 2020-07-04 11:32 | PDOC DISCHARGE SUMMARY ---
Impression - Admit/DC Date/PCP Admission Date/Primary Care Provider: 07/01/20 03:14 Discharge Date: 07/04/20 - Discharge Diagnosis (1) Ileus Is this a current diagnosis for this admission?: Yes (2) Hypokalemia Is this a current diagnosis for this admission?: Yes (3) Urinary tract infection Is this a current diagnosis for this admission?: Yes (4) Hypomagnesemia Is this a current diagnosis for this admission?: Yes (5) Hypocalcemia Is this a current diagnosis for this admission?: Yes (6) COVID-19 virus infection Is this a current diagnosis for this admission?: Yes - Additional Information Resuscitation Status: Full Code Discharge Diet: As Tolerated, Regular, Other (Comments) - Drink plenty of fluids, eat as tolerated Discharge Activity: Activity As Tolerated, Balance Activity w/Rest, Slowly Increase Activity Prescriptions: Calcium Carbonate/Vitamin D3 [Caltrate 600-Vit D3 400 Tablet] 1 tab PO BID #60 tablet Potassium Chloride 20 meq PO DAILY #3 tablet.er Ondansetron [Zofran Odt 4 mg Tablet] 1 - 2 tab PO Q4HP PRN #20 tab.rapdis PRN Reason: Home Medications: Famotidine [Pepcid 20 mg Tablet] 20 mg PO BID #20 tablet 06/26/20 Promethazine HCl [Phenergan 25 mg Tablet] 25 mg PO Q6H PRN #20 tablet 06/26/20 Sucralfate [Carafate 1 gm Tablet] 1 gm PO QID #20 tablet 06/26/20 Calcium Carbonate/Vitamin D3 [Caltrate 600-Vit D3 400 Tablet] 1 tab PO BID #60 tablet 07/04/20 Ondansetron [Zofran Odt 4 mg Tablet] 1 - 2 tab PO Q4HP PRN #20 tab.rapdis 07/04/20 Potassium Chloride 20 meq PO DAILY #3 tablet.er 07/04/20 History of Present Illiness History of Present Illness: H&P per Dr. Morgan: JADE BEAL is a 45 year old female with a history of gastric bypass surgery with multiple revisions who now presents with nausea with dry hiccups, watery diarrhea, generalized weakness and dizziness especially when she gets up from sitting position for the past few days. She states that she was evaluated at the ED 4 days but symptoms failed to improve. She denies cough, fever, chills, chest pain, shortness of breath, palpitation or passing out. She also denies recent sick contact history. Hospital Course Hospital Course: (1) Ileus Resolved; n/v/d and pain have resolved. Tolerating oral intake. Presents with abdominal pain, nausea, vomiting and diarrhea CT abdomen shows progressive small and large bowel dilation with fluid throughout suggestive of possible ileus Admitted to the medical floor. Initially placed in n.p.o. status and supported with IV fluids, antiemetics, and analgesics. Her diet was cautiously advanced to clears and then to a soft, low residue, diet which has been tolerated well. Encourage ambulation. (2) Hypokalemia Improved. Likely contributing to ileus Magnesium has been replaced. Should continue to correct now that patient is tolerating adequate oral intake. Received IV and oral replacement. (3) Urinary tract infection UA was positive for nitrites Urine culture shows E coli resistant to Cipro. Discontinue Cipro. Ceftriaxone x2 days; transitioned to Cefdinir to complete a total 5 day course of antibiotics. (4) Hypomagnesemia Replete. Mag 1.5-> 2.0 (5) Hypocalcemia Resolved; 6.9-> 8.2-> 8.6 Daily calcium supplementation. (6) COVID-19 virus infection Ruled out. COVID negative. Physical Exam Vital Signs: Temp Pulse Resp BP Pulse Ox 97.8 F 65 17 125/84 100 07/04/20 07:34 07/04/20 07:34 07/04/20 07:34 07/04/20 07:34 07/04/20 07:34 Intake & Output 07/03/20 07/04/20 07/05/20 06:59 06:59 06:59 Intake Total 3406 2595 50 Balance 3406 2595 50 Weight 68 kg 61.9 kg General appearance: PRESENT: no acute distress, well-developed, well-nourished Head exam: PRESENT: atraumatic, normocephalic Eye exam: PRESENT: conjunctiva pink, EOMI, PERRLA. ABSENT: scleral icterus Mouth exam: PRESENT: moist, tongue midline Teeth exam: PRESENT: poor dentation Respiratory exam: PRESENT: clear to auscultation juana, symmetrical, unlabored, other - room air. ABSENT: rales, rhonchi, wheezes Cardiovascular exam: PRESENT: RRR, +S1, +S2. ABSENT: diastolic murmur, rubs, systolic murmur Vascular exam: PRESENT: normal capillary refill GI/Abdominal exam: PRESENT: normal bowel sounds, soft. ABSENT: distended, guarding, mass, organolmegaly, rebound, tenderness Rectal exam: PRESENT: deferred Extremities exam: PRESENT: full ROM. ABSENT: calf tenderness, clubbing, pedal edema Musculoskeletal exam: PRESENT: ambulatory Neurological exam: PRESENT: alert, awake, oriented to person, oriented to place, oriented to time, oriented to situation, CN II-XII grossly intact. ABSENT: motor sensory deficit Psychiatric exam: PRESENT: appropriate affect, normal mood. ABSENT: homicidal ideation, suicidal ideation Skin exam: PRESENT: dry, intact, warm. ABSENT: cyanosis, rash Results Laboratory Results: WBC 7.9 10^3/uL (4.0-10.5) 07/04/20 10:00 RBC 3.74 10^6/uL (3.72-5.28) 07/04/20 10:00 Hgb 12.5 g/dL (12.0-15.5) 07/04/20 10:00 Hct 35.4 % (36.0-47.0) L 07/04/20 10:00 MCV 95 fl (80-97) 07/04/20 10:00 MCH 33.5 pg (27.0-33.4) H 07/04/20 10:00 MCHC 35.3 g/dL (32.0-36.0) 07/04/20 10:00 RDW 13.1 % (11.5-14.0) 07/04/20 10:00 Plt Count 345 10^3/uL (150-450) 07/04/20 10:00 Lymph % (Auto) 14.6 % (13-45) 06/30/20 14:20 [place] % (Auto) 12.7 % (3-13) 06/30/20 14:20 Eos % (Auto) 2.2 % (0-6) 06/30/20 14:20 Baso % (Auto) 0.4 % (0-2) 06/30/20 14:20 Reticulocyte # 0.043 10^6/uL (0.028-0.122) 07/03/20 05:25 Absolute Neuts (auto) 4.9 10^3/uL (1.7-8.2) 06/30/20 14:20 Absolute Lymphs (auto) 1.0 10^3/uL (0.5-4.7) 06/30/20 14:20 Absolute Monos (auto) 0.9 10^3/uL (0.1-1.4) 06/30/20 14:20 Absolute Eos (auto) 0.2 10^3/uL (0.0-0.6) 06/30/20 14:20 Absolute Basos (auto) 0.0 10^3/uL (0.0-0.2) 06/30/20 14:20 Seg Neutrophils % 70.1 % (42-78) 06/30/20 14:20 Retic Count (auto) 1.20 % (0.66-2.85) 07/03/20 05:25 PT 13.4 SEC (11.4-15.4) 06/30/20 14:20 INR 1.00 06/30/20 14:20 APTT 36.8 SEC (23.5-35.8) H 06/30/20 14:20 D-Dimer 0.28 ug/mL (0.00-0.50) 06/30/20 14:20 Sodium 137.4 mmol/L (137-145) 07/04/20 10:00 Potassium 3.3 mmol/L (3.6-5.0) L 07/04/20 10:00 Chloride 103 mmol/L (98-107) 07/04/20 10:00 Carbon Dioxide 26 mmol/L (22-30) 07/04/20 10:00 Anion Gap 8 (5-19) 07/04/20 10:00 BUN 4 mg/dL (7-20) L 07/04/20 10:00 Creatinine 0.43 mg/dL (0.52-1.25) L 07/04/20 10:00 Est GFR ( Amer) > 60 (>60) 07/04/20 10:00 Est GFR (MDRD) Non-Af > 60 (>60) 07/04/20 10:00 Glucose 57 mg/dL (75-110) L 07/04/20 10:00 POC Glucose 84 mg/dL (70-110) 07/02/20 12:02 Lactic Acid < 0.5 mmol/L (0.7-2.1) L 07/01/20 11:47 Calcium 8.6 mg/dL (8.4-10.2) 07/04/20 10:00 Magnesium 2.0 mg/dL (1.6-2.3) 07/03/20 05:25 Iron 47.8 ug/dL (37-170) 07/03/20 05:25 TIBC 276 ug/dL (250-450) 07/03/20 05:25 % Saturation 17 % 07/03/20 05:25 Ferritin 78.60 ng/mL (6.2-137.0) 07/03/20 05:25 Total Bilirubin 0.5 mg/dL (0.2-1.3) 06/30/20 14:20 Direct Bilirubin 0.0 mg/dL (0.0-0.4) 06/30/20 14:20 Neonat Total Bilirubin Not Reportable 06/30/20 14:20 Neonat Direct Bilirubin Not Reportable 06/30/20 14:20 Neonat Indirect Bili Not Reportable 06/30/20 14:20 AST 20 U/L (14-36) 06/30/20 14:20 ALT 94 U/L (<35) H 06/30/20 14:20 Alkaline Phosphatase 332 U/L (38-126) H 06/30/20 14:20 Troponin I < 0.012 ng/mL 06/30/20 14:20 Total Protein 7.5 g/dL (6.3-8.2) 06/30/20 14:20 Albumin 2.1 g/dL (3.5-5.0) L 07/02/20 06:00 Vitamin B12 547.0 pg/mL (239-931) 07/03/20 05:25 Folate 13.20 ng/mL (>2.76) 07/03/20 05:25 Urine Color YELLOW 06/30/20 17:15 Urine Appearance SLIGHTLY-CLOUDY 06/30/20 17:15 Urine pH 6.0 (5.0-9.0) 06/30/20 17:15 Ur Specific [place] 1.012 06/30/20 17:15 Urine Protein 30 mg/dL (NEGATIVE) H 06/30/20 17:15 Urine Glucose (UA) NEGATIVE mg/dL (NEGATIVE) 06/30/20 17:15 Urine Ketones NEGATIVE mg/dL (NEGATIVE) 06/30/20 17:15 Urine Blood NEGATIVE (NEGATIVE) 06/30/20 17:15 Urine Nitrite POSITIVE (NEGATIVE) H 06/30/20 17:15 Urine Bilirubin NEGATIVE (NEGATIVE) 06/30/20 17:15 Urine Urobilinogen NEGATIVE mg/dL (<2.0) 06/30/20 17:15 Ur Leukocyte Esterase NEGATIVE (NEGATIVE) 06/30/20 17:15 Urine WBC (Auto) 4 /HPF 06/30/20 17:15 Urine RBC (Auto) 1 /HPF 06/30/20 17:15 U Hyaline Cast (Auto) 1 /LPF 06/30/20 17:15 Urine Bacteria (Auto) 1+ /HPF 06/30/20 17:15 Squamous Epi Cells Auto <1 /HPF 06/30/20 17:15 Urine Mucus (Auto) RARE /LPF 06/30/20 17:15 Urine Ascorbic Acid NEGATIVE (NEGATIVE) 06/30/20 17:15 Stool for White Cells NO WBCs SEEN 06/30/20 17:15 Stl C. Difficile GDH Ag NEGATIVE (NEGATIVE) 06/30/20 17:15 Stl C.difficile Tox A&B NEGATIVE (NEGATIVE) 06/30/20 17:15 Urine Opiates Screen NEGATIVE 06/30/20 17:15 Urine Methadone Screen NEGATIVE 06/30/20 17:15 Ur Barbiturates Screen UNCONFIRMED POSITIVE 06/30/20 17:15 Ur Phencyclidine Scrn NEGATIVE 06/30/20 17:15 Ur Amphetamines Screen NEGATIVE 06/30/20 17:15 U Benzodiazepines Scrn NEGATIVE 06/30/20 17:15 Urine Cocaine Screen NEGATIVE 06/30/20 17:15 U Marijuana (THC) Screen NEGATIVE 06/30/20 17:15 Serum Alcohol < 10 mg/dL (NONE DETECTED) 06/30/20 14:20 COVID-19 Source See comment 06/30/20 13:44 COVID-19 (SHIRA) Not Detected (Not Detect) 06/30/20 13:44 Blood Type O POSITIVE 06/30/20 14:20 Antibody Screen NEGATIVE 06/30/20 14:20 06/30/20 14:20 Troponin I < 0.012 Impressions: Abdomen/Pelvis CT 06/30/20 00:00 IMPRESSION: Progressive small bowel and colon dilatation. Fluid throughout the colon to the level of the rectum. No high-grade obstruction. Presumed paralytic process. PICC Line Insertion 07/01/20 00:00 IMPRESSION: SUCCESSFUL PLACEMENT OF A 5 FR DUAL LUMEN 37 CM PICC IN THE LEFT BRACHIOCEPHALIC VEIN. Plan Plan of Treatment: Patient is discharged home in stable condition. Follow-up with primary care provider within 1 week. She is advised to take her medications as prescribed. Drink plenty fluids. Eat as tolerated. Return to the emergency department, as needed, for concerning symptoms. Time Spent: Greater than 30 Minutes Stroke Is this a Stroke Patient?: No Acute Heart Failure Is this a Heart Failure Patient?: No
[2020-07-04 12:12] VITALS: BP 113/78
== END 2020-07-04 13:50 | disposition home or self-care (01) ==
LOC: ER 12:07 → EH 07-01 03:14 → 3N 07-01 16:12 → 4N 07-03 11:00
PROVIDERS: ADMIT Student in an Organized Health Care Education/Training Program; ATTEND Registered Nurse
DX: K56.7 Ileus, unspecified (principal); E87.6 Hypokalemia; N30.00 Acute cystitis without hematuria; B96.20 Unspecified Escherichia coli [E. coli] as the cause of diseases classified elsewhere; Z16.23 Resistance to quinolones and fluoroquinolones; E83.42 Hypomagnesemia; Z20.828 Contact with and (suspected) exposure to other viral communicable diseases; E83.51 Hypocalcemia; K27.9 Peptic ulcer, site unspecified, unspecified as acute or chronic, without hemorrhage or perforation; T80.89XA Other complications following infusion, transfusion and therapeutic injection, initial encounter; Y84.8 Other medical procedures as the cause of abnormal reaction of the patient, or of later complication, without mention of misadventure at the time of the procedure; Y92.230 Patient room in hospital as the place of occurrence of the external cause; Z98.84 Bariatric surgery status; R06.6 Hiccough; L91.0 Hypertrophic scar; Z79.899 Other long term (current) drug therapy; Z90.49 Acquired absence of other specified parts of digestive tract; Z90.710 Acquired absence of both cervix and uterus; Z87.11 Personal history of peptic ulcer disease; Z87.19 Personal history of other diseases of the digestive system; Z86.711 Personal history of pulmonary embolism
CPT/HCPCS: 93005; 96376; 99285; 96361; 96374; 96375 ×2; 86900; 86901; 36415 ×5; 87045; 87086; 89055; 87205; 86850; 82962 ×3; 82040; 80307 ×2; 82607; 82728; 82746; 83540; 83550; 83605; 83735 ×3; 85025; 85027 ×3; 85610; 85730; 87635; 87077; 87088; 85045; 80048 ×4; 80053; 81001; 84484; 87186; 85379; 87324; 87449; 36573; 74177; 93010; G0378 ×4; J3490 ×6; J2765; J2270 ×3; J1650 ×4; J3475; J2405 ×5; J3480 ×4; J7042 ×2; J7030 ×3; S0028 ×4; J0696 ×2; J1642; C9803

== ENCOUNTER 2020-07-18 16:32 | Emergency (ER) | payer SELFPAY ==
--- NOTE | 2020-07-18 17:07 | ER Document Report ---
ED Psych Disorder / Suicide - General Mode of Arrival: Stretcher Information source: Patient, Relative TRAVEL OUTSIDE OF THE [place] IN LAST 30 DAYS: No <GUANAKO MCDUFFIE - Last Filed: 07/19/20 01:11> <SYKESMARIE M - Last Filed: 07/19/20 10:48> - General Chief Complaint: Suicidal Ideation Stated Complaint: SUICIDAL IDEATION Time Seen by Provider: 07/18/20 16:50 Primary Care Provider: [facility] [Outside] - Follow up as needed Notes: 45-year-old female past medical history significant for gastric bypass with chronic abdominal pain,, alcohol abuse, drug abuse brought to the emergency room via EMS for questionable suicidal ideation. Report was given that patient told family that she "wanted to ". Patient is denying any suicidal homicidal ideation. No previous hospitalizations for mental health or suicidal ideation. Patient admits to drinking 2/5 and a pint of vodka over the past 2 days. Patient is complaining of abdominal pain and states that is why she has been drinking so much to numb the pain she denies any nausea, vomiting, no fevers, no urinary symptoms, no diarrhea, no COVID-19 exposure. (GUANAKO MCDUFFIE) - Related Data Allergies/Adverse Reactions: No Known Allergies Allergy (Verified 06/12/20 10:31) Past Medical History - General Information source: Patient, Relative - Social History Smoking Status: Never Smoker Frequency of alcohol use: Heavy Drug Abuse: Methamphetamine Family History: Reviewed & Not Pertinent Neurological Medical History: Reports: Hx Migraine GI Medical History: Reports: Hx Gastritis, Hx Ulcer Psychiatric Medical History: Denies: Hx Depression Past Surgical History: Reports: Hx Abdominal Surgery - x4 revision, Hx Section, Hx Cholecystectomy, Hx Gastric Bypass Surgery - With revision, Hx Hysterectomy - Immunizations Hx Diphtheria, Pertussis, Tetanus Vaccination: No <GUANAKO MCDUFFIE - Last Filed: 07/19/20 01:11> Review of Systems - Review of Systems Constitutional: No symptoms reported EENT: No symptoms reported Cardiovascular: No symptoms reported Respiratory: No symptoms reported Gastrointestinal: Abdominal pain. denies: Diarrhea, Nausea, Vomiting, Constipation Genitourinary: No symptoms reported Musculoskeletal: No symptoms reported Skin: No symptoms reported Neurological/Psychological: No symptoms reported -: Yes All other systems reviewed and negative <GUANAKO MCDUFFIE - Last Filed: 07/19/20 01:11> Physical Exam - General General appearance: Appears well, Alert In distress: Mild - HEENT Head: Normocephalic, Atraumatic. No: Milligan's sign, Racoon's eyes Eyes: Normal Pupils: PERRL - Respiratory Respiratory status: No respiratory distress Chest status: Nontender Breath sounds: Normal Chest palpation: Normal - Cardiovascular Rhythm: Tachycardia Heart sounds: Normal auscultation Murmur: No - Abdominal Inspection: Normal Distension: No distension Bowel sounds: Normal Tenderness: Tender - Generalized tenderness on palpation. Organomegaly: No organomegaly - Psychological Associated symptoms: Tearful <GUANAKO MCDUFFIE - Last Filed: 07/19/20 01:11> - Vital signs Vitals: Temp Pulse Resp BP Pulse Ox 98.5 F 83 20 109/81 100 07/18/20 17:06 07/18/20 17:06 07/18/20 17:06 07/18/20 17:06 07/18/20 17:06 - Psychological Notes: Denies suicidal and homicidal ideation (GUANAKO MCDUFFIE) Course - Laboratory Result Diagrams: 07/18/20 17:28 07/18/20 17:28 - Diagnostic Test Radiology reviewed: Reports reviewed <GUANAKO MCDUFFIE - Last Filed: 07/19/20 01:11> - Laboratory Result Diagrams: 07/18/20 17:28 07/18/20 17:28 <MARIE SYKES - Last Filed: 07/19/20 10:48> - Re-evaluation Re-evalutation: 07/18/20 17:07 Spoke with patient's mom Karlene Koch who states that patient has been laying in bed drinking for the past 2 days. States she came out to the kitchen today was unsteady on her feet fell hitting her head on the counter. Unknown loss of consciousness. Mom states she had to call an ambulance because she was unable to get patient up off the floor. Per mom the patient stated "I just want to ". Mom states that the patient also told EMS "I just want to ". No previous suicide attempts. Patient was hospitalized about 7 years ago for EtOH abuse and detox and started drinking the day after she got out and has been drinking ever since. Also has a history of methamphetamine use. Mom stated that she is unable to care for her any longer. Patient continues to deny any suicidal or homicidal ideation. [facility] is aware of the patient. Presentation of head trauma in an intoxicated-patient. Unable to do full neurologic exam secondary to intoxication. No evidence of basilar skull fracture on exam without evidence of hemotympanum, raccoon eyes, or periauricular hematoma. No papilledema. Patient is not on anticoagulation. Unknown loss of consciousness of consciousness. No episodes of vomiting. Patient is therefore positive via [place] head CT criteria and CT imaging will t be obtained at this time. 07/18/20 17:31 07/18/20 17:31 07/18/20 21:09 Patient is resting comfortably she is in no acute distress at this time. Patient denies any suicidal homicidal ideation. Patient was seen and evaluated by [facility] who does not feel patient is suicidal. Patient with an elevated blood alcohol of 336. Patient is aware that she will need someone to come pick her up as she is not stable to be discharged on her ow n wound and elevated blood sugar of 336. Patient has attempted to call mom with no answer. 07/18/20 21:18 Spoke with patient's mom Karlene Koch she states that she is unable to drive to come pick her daughter up. Will call back with the patient's son's number to see if he will come pick her up. 07/19/20 01:11 Patient is sleeping no acute distress. Still unable to get a ride home. Patient is stable to be discharged when she is awake. Counseled on the importance of outpatient detox for her alcohol abuse. Follow-up with primary care physician for chronic abdominal pain. Tylenol or Motrin as needed for pain. Patient was given strict return to the emergency room guidelines. Return for any new or worsening symptoms. All questions were answered. Patient verbalized understanding and agrees with plan of care. (GUANAKO MCDUFFIE) - Vital Signs Vital signs: Temp Pulse Resp BP Pulse Ox 98.5 F 83 20 109/81 100 07/18/20 17:06 07/18/20 17:06 07/18/20 17:06 07/18/20 17:06 07/18/20 17:06 - Laboratory Laboratory results interpreted by me: 07/18/20 07/18/20 07/18/20 17:28 17:28 17:28 Lymph % (Auto) 50.5 H Chloride 109 H Creatinine 0.47 L AST 43 H Ur Leukocyte Esterase MODERATE H Salicylates < 1.0 L Acetaminophen < 10 L Serum Alcohol 326 H* Discharge <GUANAKO MCDUFFIE - Last Filed: 07/19/20 01:11> <MARIE SYKES - Last Filed: 07/19/20 10:48> - Discharge Clinical Impression: ETOH abuse, Chronic abdominal pain, Mood disorder Condition: Stable Disposition: HOME, SELF-CARE Instructions: Abdominal Pain ([facility]), Chronic Alcoholism ([facility]) Additional Instructions: Recommend rehab for your alcohol abuse. Tylenol or Motrin for pain. Follow-up with your primary care physician as needed. Return to emergency room for any new or worsening symptoms. Referrals: [facility] [Outside] - Follow up as needed [facility] [Provider Group] - Follow up in 3-5 days
[2020-07-18 18:07] LABS: APPEARANCE,URINE CLEAR; BILIRUBIN,URINE NEGATIVE (NEGATIVE); COLOR,URINE STRAW; GLUCOSE, URINE NEGATIVE (NEGATIVE); KETONES,URINE NEGATIVE (NEGATIVE); LEUKOCYTE ESTERASE,URINE MODERATE (NEGATIVE); NITRITE,URINE NEGATIVE (NEGATIVE); PROTEIN,URINE NEGATIVE (NEGATIVE); URINE SPECIFIC GRAVITY 1.005; UROBILINOGEN,URINE NEGATIVE mg/dL (<2.0)
[2020-07-18 18:15] LABS: ABSOLUTE BASOPHILS # (AUTO) 0.1 10^3/uL (0.0-0.2); ABSOLUTE LYMPHOCYTES (AUTO) 2.1 10^3/uL (0.5-4.7); ABSOLUTE MONOCYTES (AUTO) 0.2 10^3/uL (0.1-1.4); ABSOLUTE NEUT (AUTO) 1.8 10^3/uL (1.7-8.2); BASOPHILS % (AUTO) 1.7 % (0-2); EOSINOPHILS % (AUTO) 0.3 % (0-6); HEMATOCRIT 40.8 % (36.0-47.0); HEMOGLOBIN 13.8 g/dL (12.0-15.5); LYMPHOCYTES % (AUTO) 50.5 % (13-45); MEAN CORPUSCULAR HEMOGLOBIN 32.7 pg (27.0-33.4); MEAN CORPUSCULAR HGB CONC 33.7 g/dL (32.0-36.0); MEAN CORPUSCULAR VOLUME 97 fl (80-97); MONOCYTES % (AUTO) 4.8 % (3-13); PLATELET COUNT 256 10^3/uL (150-450); RED CELL DISTRIBUTION WIDTH 13.5 % (11.5-14.0); SEGMENTED NEUTROPHILS % (AUTO) 42.7 % (42-78); TOTAL CELLS COUNTED % (AUTO) 100 %; WHITE BLOOD COUNT 4.2 10^3/uL (4.0-10.5)
[2020-07-18 18:22] LABS: ALBUMIN 4.1 g/dL (3.5-5.0); ALKALINE PHOSPHATASE 112 U/L (38-126); ANION GAP 11 (5-19); ASPARTATE AMINO TRANSFERASE 43 U/L (14-36); BILIRUBIN,DIRECT 0.1 mg/dL (0.0-0.4); BILIRUBIN,TOTAL 0.4 mg/dL (0.2-1.3); BLOOD UREA NITROGEN 12 mg/dL (7-20); CALCIUM 9.2 mg/dL (8.4-10.2); CARBON DIOXIDE 24 mmol/L (22-30); CHLORIDE 109 mmol/L (98-107); GLUCOSE 89 mg/dL (75-110); POTASSIUM 4.1 mmol/L (3.6-5.0)
--- NOTE | 2020-07-18 18:23 | RADIOLOGY REPORT (SQ) ---
EXAM DESCRIPTION: CT HEAD WITHOUT IMAGES COMPLETED DATE/TIME: 07/18/2020 5:07 pm REASON FOR STUDY: head trauma COMPARISON: None. TECHNIQUE: Axial images acquired through the brain without intravenous contrast. Images reviewed wi th bone, brain and subdural windows. Additional sagittal and coronal reconstructions were generated. Images stored on PACS. All CT scanners at this facility use dose modulation, iterative reconstruction, and/or weight based d osing when appropriate to reduce radiation dose to as low as reasonably achievable (ALARA). [facility]: Dose Right [facility]: CareDose [facility]: Dose Right [facility]: Teradose 4D [facility]: Smart [employer] RADIATION DOSE: CT Rad equipment meets quality standard of care and radiation dose reduction techniq ues were employed. CTDIvol: 55.2 mGy. DLP: 1001 mGy-cm. mGy. LIMITATIONS: None. FINDINGS: VENTRICLES: Normal size and contour. CEREBRUM: No masses. No hemorrhage. No midline shift. No evidence for acute infarction. Normal gra y/white matter differentiation. No areas of low density in the white matter. CEREBELLUM: No masses. No hemorrhage. No alteration of density. No evidence for acute infarction. EXTRAAXIAL SPACES: No fluid collections. No masses. ORBITS AND GLOBE: No intra- or extraconal masses. Normal contour of globe without masses. CALVARIUM: No fracture. PARANASAL SINUSES: No fluid or mucosal thickening. SOFT TISSUES: No mass or hematoma. OTHER: No other significant finding. IMPRESSION: NO ACUTE INTRACRANIAL IMAGING FINDINGS. EVIDENCE OF ACUTE STROKE: NO. COMMENT: Quality ID # [id number]: Final reports with documentation of one or more dose reduction techniques (e.g., Automated exposure control, adjustment of the mA and/or kV according to patient size, use of iterative reconstruction technique) TECHNICAL DOCUMENTATION: JOB ID: [id number] [employer]- All Rights Reserved Reading location - IP/workstation name: [email or web address]
[2020-07-18 18:27] LABS: ACETAMINOPHEN < 10 ug/mL (10-30); SALICYLATE < 1.0 mg/dL (2.0-20.0)
[2020-07-18 18:28] LABS: URINE AMPHETAMINES SCREEN NEGATIVE; URINE BARBITURATES SCREEN NEGATIVE; URINE BENZODIAZEPINES SCREEN NEGATIVE; URINE COCAINE SCREEN NEGATIVE; URINE MARIJUANA (THC) SCREEN NEGATIVE; URINE METHADONE SCREEN NEGATIVE; URINE PHENCYCLIDINE SCREEN NEGATIVE
[2020-07-18 18:43] LABS: ALCOHOL 326 mg/dL (NONE DETECTED)
[2020-07-18] MEDS ORDERED: ACETAMINOPHEN 325 MG TABLET PO ONE (18:58)
--- NOTE | 2020-07-18 21:29 | PSYCHOLOGICAL NOTE ---
Psych Note - Psych Note Date seen by psych provider: 07/18/20 Time seen by psych provider: 18:40 Psych Note: Reason for Consult:Suicidal comment Consent Permissions: none provided Patient arrived to [facility] ED via EMS after falling and hitting her head. Patient is currently intoxicated and reportedly after falling she was laying on the ground and made a suicidal comment; "I just want to ." Patient confirms she made this, and however states she was in pain from the fall and that she did not mean it. Patient denies plans means or intent. Patient reports she lives with her mother. Patient reports that she just wants to go home as there is other patients that are scaring her. Patient is alert and orientated to person, place, time and circumstance. Mood is anxious with congruent affect. Clinician notes patient was just scared by a different patient. Patient denies suicidal and homicidal ideation. Patient admits to making suicidal comment after falling and hurting herself. Denies plans means or intent. Delusions are absent and behaviors congruent with an intact reality based presentation i.e. organized and linear thought process. Eye contact is well maintained. Conversational speech is within normal rate, tone and prosody. Attention and concentration is fair. Insight, judgment, impulse control are historically poor due to substance abuse. Clinical Presentation: Alcohol intoxication; with substance abuse, severe Suicidal comment after falling and hurting herself IVC Criteria per [place] GS 122C Dangerous to others Within the relevant past the individual No has inflicted or attempted to inflict or threatened to inflict serious bodily harm on another AND No that there is a reasonable probability that this conduct will be repeated as there is an absence of supervision or structure to prevent. OR No has acted in such a way as to create a substantial risk of serious bodily harm to another AND No that there is a reasonable probability that this conduct will be repeated as there is an absence of supervision or structure to prevent. OR No has engaged in extreme destruction of property AND NO that there is a reasonable probability that this conduct will be repeated as there is an absence of supervision or structure to prevent. Previous episodes of dangerousness to others, when applicable, may be considered when determining reasonable probability of future dangerous conduct. Clear, cogent, and convincing evidence that an individual has committed a homicide in the relevant past is prima facie evidence of dangerousness to others. Dangerous to self Within the relevant past the individual has done any of the following: acted in such a way as to show ALL of the following: No The individual would be unable without care, supervision, and the continued assistance of others not otherwise available, to exercise self- control, judgment, and discretion in the conduct of the individual's daily responsibilities and social relations or to satisfy the individual's need for nourishment, personal or medical care, half-way, or self-protection and safety. AND No There is a reasonable probability of the individual suffering serious physical debilitation within the near future unless adequate treatment is given. A showing of behavior that is grossly irrational, of actions that the individual is unable to control, of behavior that is grossly inappropriate to the situation, or of other evidence of severely impaired insight and judgment shall create a prima facie inference that the individual is unable to care for himself or herself. OR No has attempted suicide or threatened suicide AND No that there is a reasonable probability of suicide unless adequate treatment is given as there is an absence of supervision or structure to prevent suicide of patient who has made an attempt, serious gesture or threat. Patient reportedly made a passive suicidal comment after falling and hitting her head. She denies intent, plan or means. Patient reports she was just hurt. Patient is currently intoxicated. OR No has mutilated himself or herself or attempted to mutilate himself or herself AND No that there is a reasonable probability of serious self-mutilation unless adequate treatment is given as there is an absence of supervision or structure to prevent. NOTE: Previous episodes of dangerousness to self, when applicable, may be considered when determining reasonable probability of physical debilitation, suicide, or self-mutilation. Impression\\plan: Patient is cleared from acute psychiatric services. Patient has chronic alcohol abuse that is severe. Patient reportedly fell and hit her head. After hurting herself she reportedly stated that she wanted to . Patient admits to making this comment however denies intent, plan or means. Patient reports she was just in pain. Patient is encouraged to engage in substance abuse treatment. Resource information will be provided upon discharge so the patient can follow-up with outpatient substance use treatment such as detox, intensive outpatient, residential, and mobile crisis contact information. Dr. Ricketts was consulted to care management of this patient; attending physicians in agreement with recommendations and disposition.
--- NOTE | 2020-07-19 07:35 | EKG REPORT ---
SEVERITY:- BORDERLINE ECG - SINUS RHYTHM BORDERLINE PROLONGED QT INTERVAL : Confirmed by: Pankaj Wells MD 19-Jul-2020 07:35:03
--- NOTE | 2020-07-19 09:21 | ER Document Report ---
Doctor's Note Notes: 07/19/20 09:12 S: Patient was turned over to me by the nighttime provider team. Apparently she came in with complaints of suicidal gesture last night. She apparently fell and then said that she just wanted to . She was acutely intoxicated. Her alcohol level was 326. She was seen by the behavioral health team at that time when she was acutely intoxicated. She was not placed on IVC orders. This morning she is clinically sober and stating that she is not suicidal. She has no plan. She would like to be discharged home. We will have our behavioral health team rounded on her this morning to illustrate consistency in their evaluation from last night since she was acutely intoxicated. O: Constitutional: Alert and oriented. Very anxious Neck: Supple, no lymphadenopathy Cardio: No murmurs rubs or gallops Pulmonology: Clear to auscultation, no wheezes, rhonchi, rales Psych: Denies SI. She is very anxious. She states that it is her goal to stop drinking and to try to start a relationship with her children again. A/P: Spoke with Ferny from [facility]. She will round on the patient. She still stands by her assessment of the patient from last night; however, she is going to consult her physician to discuss starting patient on some medication. After this, plan to discharge home. 07/19/20 11:31 Was able to follow-up with [facility]. Would like to start the patient on Effexor 37.5 mg twice daily. Plan to give a dose here now. Will write for 2 weeks worth of the medication. Patient agrees with the plan.
[2020-07-19] MEDS ORDERED: VENLAFAXINE HCL 37.5 MG CAP.SR.24H PO ONE (11:30)
[2020-07-19 11:57] VITALS: BP 148/99
== END 2020-07-19 11:55 | disposition home or self-care (01) ==
LOC: ER 16:32
DX: F39 Unspecified mood [affective] disorder (principal); F10.129 Alcohol abuse with intoxication, unspecified; Y90.8 Blood alcohol level of 240 mg/100 ml or more; R10.9 Unspecified abdominal pain; G89.29 Other chronic pain; S09.90XA Unspecified injury of head, initial encounter; W19.XXXA Unspecified fall, initial encounter; F15.10 Other stimulant abuse, uncomplicated; R00.0 Tachycardia, unspecified; R10.817 Generalized abdominal tenderness; Z98.84 Bariatric surgery status; Z87.19 Personal history of other diseases of the digestive system; Z90.49 Acquired absence of other specified parts of digestive tract; Z90.710 Acquired absence of both cervix and uterus
CPT/HCPCS: 93005; 99285; 36415; 80307 ×4; 85025; 80053; 81001; 70450; 93010; J3490